=== PATIENT | male | born 1980 | race Caucasian/White ===

== ENCOUNTER 2017-01-27 16:41 | Inpatient (IN) | payer MEDICAID, OTHER ==
[2017-01-27] MEDS ORDERED: Alum Hydrox/Mag Hydrox/Simeth 30 ML, Lidocaine 2% 15 ML PO ONE ×2 (17:16)
[2017-01-27] MEDS ORDERED: Ondansetron 4 MG/2 ML SDV IVPUSH ONE (17:16)
[2017-01-27] MEDS ORDERED: HYDROmorphone 1 MG/ML Syringe IVPUSH ONE ×3 (17:16→19:45)
[2017-01-27] MEDS ORDERED: Sodium Chloride 0.9% 10 ML Syringe FLUSH PRN (17:16)
--- NOTE | 2017-01-27 17:23 | EDM.PDOC ---
ED HPI GENERAL MEDICAL PROBLEM - General Chief Complaint: Gastrointestinal Problem Stated Complaint: VOMITING Time Seen by Provider: 01/27/17 17:05 Source of Information: Reports: Patient History Limitations: Reports: No Limitations - History of Present Illness INITIAL COMMENTS - FREE TEXT/NARRATIVE: patient is a 36-year-old male presents to ED complaining of right upper quadrant abdominal pain and nausea with vomiting. States this started last night after eating questionable bad coleslaw. Started proximal and 2 hours after eating pulled pork sandwich and coleslaw. States after eating coleslaw he became bloated and distended some discomfort and gave himself to vomit x2. He was able to sleep throughout the night without issues. Upon waking this morning a couple further and again experienced similar episode. This again happened at lunchtime. States he had peanut butter and jelly sandwich at lunch. states the pain is isolated to the right upper quadrant described as a crampy sharp sensation. Pain is constant and waxes and wanes in intensity. Pain is rated as 7 /10 currently. he has not taken anything for the pain. Denies any fever/chills, shortness of breath, chest pain, acid reflux, diarrhea, dysuria. Patient has a history of left inguinal hernia repair and back fusion. He has no additional past medical history and is currently taking no prescription medications. Patient does smoke one pack per day. Alcohol social. No recreational drug use. PCP is Reema and cold. Onset: Sudden Duration: Constant, Getting Worse, Waxing/Waning Location: Reports: Abdomen Quality: Reports: Ache, Sharp, Stabbing Severity: Severe Improves with: Reports: None Worsens with: Reports: Eating Context: Reports: Other Associated Symptoms: Reports: Loss of Appetite, Nausea/Vomiting. 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 [No Known Home Meds] 01/27/17 [History] Past Medical History Musculoskeletal History: Reports: Back Pain, Chronic - Past Surgical History GI Surgical History: Reports: Hernia Repair/Other Neurological Surgical History: Reports: Spinal Fusion Musculoskeletal Surgical History: Reports: Other (See Below) Other Musculoskeletal Surgeries/Procedures:: back surgery Social & Family History - Family History Family Medical History: Noncontributory - Tobacco Use Smoking Status *Q: Current Every Day Smoker Years of Tobacco use: 10 Packs/Tins Daily: 1 - Caffeine Use Caffeine Use: Reports: Coffee - Alcohol Use Days Per Week of Alcohol Use: 2 Number of Drinks Per Day: 4 Total Drinks Per Week: 8 - Recreational Drug Use Recreational Drug Use: Yes Drug Use in Last 12 Months: Yes Recreational Drug Type: Reports: Marijuana/Hashish Recreational Drug Use Frequency: Monthly ED ROS GENERAL - Review of Systems Review Of Systems: See Below Constitutional: Reports: Decreased Appetite. Denies: Fever, Chills, Malaise, Weakness Respiratory: Denies: Shortness of Breath, Cough, Sputum Cardiovascular: Denies: Chest Pain, Dyspnea on Exertion, Palpitations, Syncope GI/Abdominal: Reports: Abdominal Pain, Nausea, Vomiting. Denies: Constipation, Diarrhea, Hematemesis : Denies: Dysuria Musculoskeletal: Denies: Back Pain Neurological: Denies: Dizziness ED EXAM, GI/ABD - Physical Exam Exam: See Below Exam Limited By: No Limitations General Appearance: Alert, WD/WN, Moderate Distress Ears: Hearing Grossly Normal Nose: Normal Inspection Throat/Mouth: Normal Voice, No Airway Compromise Neck: Normal Inspection, Supple Respiratory/Chest: No Respiratory Distress, Lungs Clear, No Accessory Muscle Use Cardiovascular: Normal Peripheral Pulses, Regular Rate, Rhythm, No Murmur GI/Abdominal: Normal Bowel Sounds, Soft, No Organomegaly, No Distention, Guarding, Patricia's Sign. No: McBurney's Sign (Male) Exam: Deferred Rectal (Males) Exam: Deferred Back Exam: Normal Inspection Neurological: Alert, Oriented, CN II-XII Intact, Normal Cognition Psychiatric: Normal Affect, Normal Mood Skin Exam: Warm, Dry, Intact, Normal Color Course - Vital Signs Last Recorded V/S: Last Vital Signs Temp 98.8 F 01/27/17 16:49 Pulse 77 01/27/17 16:49 Resp BP 143/88 H 01/27/17 16:49 Pulse Ox 100 01/27/17 16:49 - Orders/Labs/Meds Orders: Active Orders 24 hr Category Date Time Status Ambulate [RC] ASDIRECTED Care 01/27/17 20:34 Active Height and Weight [RC] DAILY Care 01/27/17 20:34 Active Intake and Output [RC] QSHIFT Care 01/27/17 20:34 Active Notify Provider Consults [RC] ASDIRECTED Care 01/27/17 20:38 Active Oxygen Therapy [RC] PRN Care 01/27/17 20:34 Active Peripheral IV Care [RC] . DIRECTED Care 01/27/17 17:16 Active RT Aerosol Therapy [RC] ASDIRECTED Care 01/27/17 20:36 Active Up With Assistance [RC] ASDIRECTED Care 01/27/17 20:34 Active Up ad Funmi [RC] ASDIRECTED Care 01/27/17 20:34 Active VTE/DVT Education [RC] PER UNIT ROUTINE Care 01/27/17 20:34 Active Vital Signs [RC] Q4H Care 01/27/17 20:34 Active Consult to Case Management [CONS] Routine Cons 01/27/17 20:37 Active Consult to Physician [CONS] Routine Cons 01/27/17 20:37 Active Consult to Product Demonstrator [CONS] Routine Cons 01/27/17 20:37 Active NPO [Nothing Per Oral Diet] [DIET] Diet 01/27/17 Breakfast Active Nothing per Oral Now Diet [DIET] Diet 01/27/17 Dinner Active BASIC METABOLIC PANEL,BMP [CHEM] AM Lab 01/28/17 05:11 Ordered BASIC METABOLIC PANEL,BMP [CHEM] AM Lab 01/29/17 05:11 Ordered BASIC METABOLIC PANEL,BMP [CHEM] AM Lab 01/30/17 05:11 Ordered BASIC METABOLIC PANEL,BMP [CHEM] AM Lab 01/31/17 05:11 Ordered BASIC METABOLIC PANEL,BMP [CHEM] AM Lab 02/01/17 05:11 Ordered C-REACTIVE PROTEIN [CHEM] AM Lab 01/28/17 05:11 Ordered C-REACTIVE PROTEIN [CHEM] AM Lab 01/29/17 05:11 Ordered C-REACTIVE PROTEIN [CHEM] AM Lab 01/30/17 05:11 Ordered C-REACTIVE PROTEIN [CHEM] AM Lab 01/31/17 05:11 Ordered C-REACTIVE PROTEIN [CHEM] AM Lab 02/01/17 05:11 Ordered CBC WITH AUTO DIFF [HEME] AM Lab 01/28/17 05:11 Ordered CBC WITH AUTO DIFF [HEME] AM Lab 01/29/17 05:11 Ordered CBC WITH AUTO DIFF [HEME] AM Lab 01/30/17 05:11 Ordered CBC WITH AUTO DIFF [HEME] AM Lab 01/31/17 05:11 Ordered CBC WITH AUTO DIFF [HEME] AM Lab 02/01/17 05:11 Ordered MAGNESIUM [CHEM] AM Lab 01/28/17 05:11 Ordered MAGNESIUM [CHEM] AM Lab 01/29/17 05:11 Ordered MAGNESIUM [CHEM] AM Lab 01/30/17 05:11 Ordered MAGNESIUM [CHEM] AM Lab 01/31/17 05:11 Ordered MAGNESIUM [CHEM] AM Lab 02/01/17 05:11 Ordered Albuterol/Ipratropium [DuoNeb 3.0-0.5 MG/3 ML] Med 01/27/17 20:36 Active 3 ml NEB Q4H PRN Bisacodyl [Dulcolax] Med 01/27/17 20:36 Active 5 mg PO DAILY PRN Dextrose 5%-0.45% NaCl [Dextrose 5%-1/2 NS] 1,000 ml Med 01/27/17 21:30 Active IV ASDIRECTED Docusate Sodium/Sennosides [Senna Plus] Med 01/27/17 20:36 Active 1 tab PO BID PRN Enoxaparin [Lovenox] Med 01/28/17 09:00 Active 40 mg SUBCUT DAILY HYDROmorphone [Dilaudid] Med 01/27/17 20:34 Active 1 mg IVPUSH Q4H PRN LORazepam [Ativan] Med 01/27/17 20:36 Active 1 mg IV Q6H PRN Magnesium Rep Pharmacy to Dose [Pharmacy to Dose - Med 01/27/17 20:45 Pending Magnesium Replacement] 1 dose .XX ASDIRECTED Metoprolol Tartrate [Lopressor] Med 01/27/17 20:39 Active 5 mg IVPUSH Q4H PRN Nicotine [Habitrol] Med 01/27/17 21:00 Active 21 mg TRDERM DAILY Ondansetron [Zofran] Med 01/27/17 20:34 Active 4 mg IV Q6H PRN Piperacillin/Tazobactam [Zosyn] 4.5 gm Med 01/28/17 04:00 Active Sodium Chloride 0.9% [Normal Saline] 100 ml IV Q8H Polyethylene Glycol 3350 [MiraLAX] Med 01/27/17 20:36 Active 17 gm PO DAILY PRN Potassium Rep Pharmacy to Dose [Pharmacy to Dose - Med 01/27/17 20:45 Pending Potassium Replacement] 1 dose .XX ASDIRECTED Promethazine [Phenergan] 12.5 mg Med 01/27/17 20:34 Active Sodium Chloride 0.9% [Normal Saline] 50 ml IV Q6H Saccharomyces Boulardii [Florastor] Med 01/27/17 21:00 Active 500 mg PO BID Sodium Chloride 0.9% [Saline Flush] Med 01/27/17 17:16 Active 10 ml FLUSH ASDIRECTED PRN Temazepam [Restoril] Med 01/27/17 20:36 Active 30 mg PO BEDTIME PRN hydrALAZINE [Apresoline] Med 01/27/17 20:39 Active 20 mg IVPUSH Q4H PRN Peripheral IV Insertion Adult [OM.PC] Stat Oth 01/27/17 17:15 Ordered Resuscitation Status Routine Resus Stat 01/27/17 20:34 Ordered Medication Orders Albuterol/Ipratropium (Duoneb 3.0-0.5 Mg/3 Ml) 3 ml NEB Q4H PRN PRN Reason: Shortness Of Breath/wheezing Bisacodyl (Dulcolax) 5 mg PO DAILY PRN PRN Reason: Constipation Enoxaparin Sodium (Lovenox) 40 mg SUBCUT DAILY [facility] Hydralazine HCl (Apresoline) 20 mg IVPUSH Q4H PRN PRN Reason: Hypertension Hydromorphone HCl (Dilaudid) 1 mg IVPUSH Q4H PRN PRN Reason: Pain (severe 7-10) Promethazine HCl 12.5 mg/ (Sodium Chloride) 50.5 mls @ 100 mls/hr IV Q6H PRN PRN Reason: Nausea/Vomiting Dextrose/Sodium Chloride (Dextrose 5%-1/2 Ns) 1,000 mls @ 125 mls/hr IV ASDIRECTED [facility] Piperacillin Sod/Tazobactam (Sod 4.5 gm/ Sodium Chloride) 100 mls @ 25 mls/hr IV Q8H [facility] Lorazepam (Ativan) 1 mg IV Q6H PRN PRN Reason: Anxiety Magnesium Sulfate (Pharmacy To Dose - Magnesium Replacement) 1 dose .XX ASDIRECTED [facility] Metoprolol Tartrate (Lopressor) 5 mg IVPUSH Q4H PRN PRN Reason: Tachycardia Nicotine (Habitrol) 21 mg TRDERM DAILY [facility] Ondansetron HCl (Zofran) 4 mg IV Q6H PRN PRN Reason: Nausea/Vomiting Polyethylene Glycol (Miralax) 17 gm PO DAILY PRN PRN Reason: Constipation Potassium Chloride (Pharmacy To Dose - Potassium Replacement) 1 dose .XX ASDIRECTED [facility] Saccharomyces Boulardii (Florastor) 500 mg PO BID [facility] Senna/Docusate Sodium (Senna Plus) 1 tab PO BID PRN PRN Reason: Constipation Sodium Chloride (Saline Flush) 10 ml FLUSH ASDIRECTED PRN PRN Reason: Keep Vein Open Last Admin: 01/27/17 17:50 Dose: 10 ml Temazepam (Restoril) 30 mg PO BEDTIME PRN PRN Reason: Sleep Labs: Laboratory Tests 01/27/17 01/27/17 01/27/17 Range/Units 17:00 17:00 17:00 WBC 12.86 H (4.23-9.07) K/mm3 RBC 4.96 (4.63-6.08) M/mm3 Hgb 15.3 (13.7-17.5) gm/L Hct 44.7 (40.1-51.0) % MCV 90.1 (79.0-92.2) fl MCH 30.8 (25.7-32.2) pg MCHC 34.2 (32.2-35.5) g/dl RDW Std Deviation 44.7 H (35.1-43.9) fL Plt Count 205 (163-337) K/mm3 MPV 9.7 (9.4-12.3) fl Neut % (Auto) 80.7 H (34.0-67.9) % Lymph % (Auto) 10.7 L (21.8-53.1) % Burnet % (Auto) 7.5 (5.3-12.2) % Eos % (Auto) 0.7 L (0.8-7.0) Baso % (Auto) 0.2 (0.1-1.2) % Neut # (Auto) 10.39 H (1.78-5.38) K/mm3 Lymph # (Auto) 1.37 (1.32-3.57) K/mm3 Burnet # (Auto) 0.97 H (0.30-0.82) K/mm3 Eos # (Auto) 0.09 (0.04-0.54) K/mm3 Baso # (Auto) 0.02 (0.01-0.08) K/mm3 Sodium 143 (136-145) mEq/L Potassium 3.9 (3.5-5.1) mEq/L Chloride 105 (98-107) mEq/L Carbon Dioxide 28 (21-32) mEq/L Anion Gap 13.9 (5-15) BUN 16 (7-18) mg/dL Creatinine 1.1 (0.7-1.3) mg/dL Est Cr Clr Drug Dosing 105.86 mL/min Estimated GFR (MDRD) > 60 (>60) mL/min BUN/Creatinine Ratio 14.5 (14-18) Glucose 125 H (74-106) mg/dL Lactic Acid (0.4-2.0) mmol/L Calcium 9.2 (8.5-10.1) mg/dL Total Bilirubin 0.7 (0.2-1.0) mg/dL GGT 271 H (15-85) U/L AST 268 H (15-37) U/L ALT 225 H (16-63) U/L Alkaline Phosphatase 119 H (46-116) U/L Lactate Dehydrogenase (85-227) U/L C-Reactive Protein < 0.2 (<1.0) mg/dL Total Protein 7.5 (6.4-8.2) g/dl Albumin 4.2 (3.4-5.0) g/dl Globulin 3.3 gm/dL Albumin/Globulin Ratio 1.3 (1-2) Triglycerides (<150) mg/dL Cholesterol (<200) mg/dL LDL Cholesterol Direct (<100) mg/dL HDL Cholesterol (40-59) mg/dL Lipase 82519 H (73-393) U/L Urine Color (Yellow) Urine Appearance (Clear) Urine pH (5.0-8.0) Ur Specific [place] (1.005-1.030) Urine Protein (Negative) Urine Glucose (UA) (Negative) Urine Ketones (Negative) Urine Occult Blood (Negative) Urine Nitrite (Negative) Urine Bilirubin (Negative) Urine Urobilinogen (0.2-1.0) Ur Leukocyte Esterase (Negative) Urine RBC (0-5) /hpf Urine WBC (0-5) /hpf Ur Epithelial Cells Ur Squamous Epith Cells (0-5) /hpf Amorphous Sediment (NOT SEEN) /hpf Urine Bacteria (FEW) /hpf Urine Mucus (FEW) /hpf 01/27/17 01/27/17 01/27/17 Range/Units 17:00 17:56 21:05 WBC (4.23-9.07) K/mm3 RBC (4.63-6.08) M/mm3 Hgb (13.7-17.5) gm/L Hct (40.1-51.0) % MCV (79.0-92.2) fl MCH (25.7-32.2) pg MCHC (32.2-35.5) g/dl RDW Std Deviation (35.1-43.9) fL Plt Count (163-337) K/mm3 MPV (9.4-12.3) fl Neut % (Auto) (34.0-67.9) % Lymph % (Auto) (21.8-53.1) % Burnet % (Auto) (5.3-12.2) % Eos % (Auto) (0.8-7.0) Baso % (Auto) (0.1-1.2) % Neut # (Auto) (1.78-5.38) K/mm3 Lymph # (Auto) (1.32-3.57) K/mm3 Burnet # (Auto) (0.30-0.82) K/mm3 Eos # (Auto) (0.04-0.54) K/mm3 Baso # (Auto) (0.01-0.08) K/mm3 Sodium (136-145) mEq/L Potassium (3.5-5.1) mEq/L Chloride (98-107) mEq/L Carbon Dioxide (21-32) mEq/L Anion Gap (5-15) BUN (7-18) mg/dL Creatinine (0.7-1.3) mg/dL Est Cr Clr Drug Dosing mL/min Estimated GFR (MDRD) (>60) mL/min BUN/Creatinine Ratio (14-18) Glucose (74-106) mg/dL Lactic Acid 0.9 (0.4-2.0) mmol/L Calcium (8.5-10.1) mg/dL Total Bilirubin (0.2-1.0) mg/dL GGT (15-85) U/L AST (15-37) U/L ALT (16-63) U/L Alkaline Phosphatase (46-116) U/L Lactate Dehydrogenase 366 H (85-227) U/L C-Reactive Protein < 0.2 (<1.0) mg/dL Total Protein (6.4-8.2) g/dl Albumin (3.4-5.0) g/dl Globulin gm/dL Albumin/Globulin Ratio (1-2) Triglycerides 209 H (<150) mg/dL Cholesterol 200 (<200) mg/dL LDL Cholesterol Direct 109 H* (<100) mg/dL HDL Cholesterol 49.0 (40-59) mg/dL Lipase (73-393) U/L Urine Color Yellow (Yellow) Urine Appearance Cloudy H (Clear) Urine pH 8.5 H (5.0-8.0) Ur Specific [place] 1.020 (1.005-1.030) Urine Protein 1+ H (Negative) Urine Glucose (UA) Negative (Negative) Urine Ketones Negative (Negative) Urine Occult Blood Negative (Negative) Urine Nitrite Negative (Negative) Urine Bilirubin Negative (Negative) Urine Urobilinogen 1.0 (0.2-1.0) Ur Leukocyte Esterase Negative (Negative) Urine RBC Not seen (0-5) /hpf Urine WBC 0-5 (0-5) /hpf Ur Epithelial Cells Not Reportable Ur Squamous Epith Cells 0-5 (0-5) /hpf Amorphous Sediment Many H (NOT SEEN) /hpf Urine Bacteria Moderate H (FEW) /hpf Urine Mucus Not seen (FEW) /hpf Meds: Medications Generic Name Dose Route Start Last Admin Trade Name Freq PRN Reason Stop Dose Admin Albuterol/Ipratropium 3 ml 01/27/17 20:36 Duoneb 3.0-0.5 Mg/3 Ml NEB Q4H PRN Shortness Of Breath/wheezing Bisacodyl 5 mg 01/27/17 20:36 Dulcolax PO DAILY PRN Constipation Enoxaparin Sodium 40 mg 01/28/17 09:00 Lovenox SUBCUT DAILY [facility] Hydralazine HCl 20 mg 01/27/17 20:39 Apresoline IVPUSH Q4H PRN Hypertension Hydromorphone HCl 1 mg 01/27/17 20:34 Dilaudid IVPUSH Q4H PRN Pain (severe 7-10) Promethazine HCl 12.5 mg/ 50.5 mls @ 100 mls/hr 01/27/17 20:34 Sodium Chloride IV Q6H PRN Nausea/Vomiting Dextrose/Sodium Chloride 1,000 mls @ 125 mls/hr 01/27/17 21:30 Dextrose 5%-1/2 Ns IV ASDIRECTED [facility] Piperacillin Sod/Tazobactam 100 mls @ 25 mls/hr 01/28/17 04:00 Sod 4.5 gm/ Sodium Chloride IV Q8H [facility] Lorazepam 1 mg 01/27/17 20:36 Ativan IV Q6H PRN Anxiety Magnesium Sulfate 1 dose 01/27/17 20:45 Pharmacy To Dose - Magnesium Replacement .XX ASDIRECTED [facility] Metoprolol Tartrate 5 mg 01/27/17 20:39 Lopressor IVPUSH Q4H PRN Tachycardia Nicotine 21 mg 01/27/17 21:00 Habitrol TRDERM DAILY [facility] Ondansetron HCl 4 mg 01/27/17 20:34 Zofran IV Q6H PRN Nausea/Vomiting Polyethylene Glycol 17 gm 01/27/17 20:36 Miralax PO DAILY PRN Constipation Potassium Chloride 1 dose 01/27/17 20:45 Pharmacy To Dose - Potassium Replacement .XX ASDIRECTED [facility] Saccharomyces Boulardii 500 mg 01/27/17 21:00 Florastor PO BID [facility] Senna/Docusate Sodium 1 tab 01/27/17 20:36 Senna Plus PO BID PRN Constipation Sodium Chloride 10 ml 01/27/17 17:16 01/27/17 17:50 Saline Flush FLUSH 10 ml ASDIRECTED PRN Administration Keep Vein Open Temazepam 30 mg 01/27/17 20:36 Restoril PO BEDTIME PRN Sleep Discontinued Medications Generic Name Dose Route Start Last Admin Trade Name Freq PRN Reason Stop Dose Admin Al Hydroxide/Mg Hydroxide 30 0 ml 01/27/17 17:16 01/27/17 17:47 ml/ Lidocaine HCl 15 ml PO 01/27/17 17:17 45 ml ONETIME ONE Administration Hydromorphone HCl 1 mg 01/27/17 17:16 01/27/17 17:42 Dilaudid IVPUSH 01/27/17 17:17 1 mg ONETIME ONE Administration Hydromorphone HCl 1 mg 01/27/17 18:43 01/27/17 18:48 Dilaudid IVPUSH 01/27/17 18:44 1 mg ONETIME ONE Administration Hydromorphone HCl 1 mg 01/27/17 19:45 01/27/17 20:23 Dilaudid IVPUSH 01/27/17 19:46 1 mg ONETIME ONE Administration Hyoscyamine 0.125 mg 01/27/17 18:44 01/27/17 18:49 Hyomax-Sl SL 01/27/17 18:45 0.125 mg ONETIME ONE Administration Sodium Chloride 1,000 mls @ 250 mls/hr 01/27/17 17:30 01/27/17 20:15 Normal Saline IV 01/27/17 21:29 999 mls/hr ASDIRECTED [facility] Infusion Sodium Chloride 1,000 mls @ 999 mls/hr 01/27/17 19:55 01/27/17 21:11 Normal Saline IV 01/27/17 20:55 999 mls/hr ONETIME ONE Administration Piperacillin Sod/Tazobactam 100 mls @ 200 mls/hr 01/27/17 20:00 01/27/17 21: 42 Sod 3.375 gm/ Sodium Chloride IV 01/27/17 20:29 Not Given ONETIME ONE Sodium Chloride 1,000 mls @ 999 mls/hr 01/27/17 20:04 Normal Saline IV 01/27/17 21:04 ONETIME ONE Piperacillin Sod/Tazobactam 100 mls @ 200 mls/hr 01/27/17 20:18 Sod 4.5 gm/ Sodium Chloride IV 01/27/17 20:47 ONETIME ONE Iopamidol 125 ml 01/27/17 20:13 01/27/17 20:43 Isovue-300 (61%) IVPUSH 01/27/17 20:14 125 ml ONETIME ONE Administration Ondansetron HCl 4 mg 01/27/17 17:16 01/27/17 17:45 Zofran IVPUSH 01/27/17 17:17 4 mg ONETIME ONE Administration Scopolamine 1.5 mg 01/27/17 20:40 Transderm-Scop TOP 01/27/17 20:41 ONETIME ONE Sodium Chloride 10 ml 01/27/17 20:13 01/27/17 20:43 Saline Flush FLUSH 01/27/17 20:14 10 ml ONETIME ONE Administration - Re-Assessments/Exams Free Text/Narrative Re-Assessment/Exam: Ordered a peripheral IV with normal saline 250 mL per hour, Zofran 4 mg IVP, Dilaudid 1 mg IVP, GI cocktail, CBC, chem 14, CRP, lipase, and UA. 01/27/17 18:06 White blood cell count 12.86, neutrophil percentage 80.7, neutrophil #10.39, sodium 143 potassium 3.9, creatinine 1.1, glucose 125, total bilirubin 0.7, AST 268, ALT 225, phosphatase 119, CRP less than 0.2, lipase pending. Ordered a limited abdominal ultrasound to rule out cholecystitis. 01/27/17 18:44 Per nursing staff patient still complaining of pain RUQ. Ordered levsin o.125 mg SL and dilaudid 1 mgIVP. 01/27/17 18:47Lipase 20,778. UA negative for hematuria. Ordered GGT. 01/27/17 19:41 GGT 271 01/27/17 19:42 limited abdominal ultrasound impression: Multiple gallstones. No gallbladder wall thickening or biliary duct rotation seen. Scattered pancreas from bowel gas. No additional abnormality is identified on the right upper quadrant abdominal ultrasound exam. Ordered CT of the abdomen and p 01/27/17 19:[address] Palomares, patient does not require ERCP since no ductal dilitation noted. Patient most likely passed a stone. Suggest admitting to the hospital for gallstone pancreatitis. Repeat LFTs a.m. and obtain MRICP tomorrow morning. If ductal stone present call Dr. Palomares to transfer and have ERCP performed. 01/27/17 20:03 Orderd MS 2000 mL 999 mL per hour, Zosyn 3.375 g IV x1.Discussed patient with Dr. David he has agreed to admit the patient to [facility] telemetry. Admission orders placed by Dr. Spence. CT abdomen pelvis with IV contrast impression: Slightly prominent fluid-filled small bowel loops of the left abdomen raising the possibility of gastroenteritis. Gallstones. Other incidental findings as described above. Departure - Departure Time of Disposition: 20:06 Disposition: Admitted As Inpatient 64 Clinical Impression: Pancreatitis, gallstone - Discharge Information Referrals: Corine Olvera PHOTOGRAPHIC PROCESS WORKER [Primary Care Provider] - Forms: ED Department Discharge - My Orders Last 24 Hours: My Active Orders 01/27/17 17:15 Peripheral IV Insertion Adult [OM.PC] Stat 01/27/17 17:16 Peripheral IV Care [RC] . DIRECTED Sodium Chloride 0.9% [Saline Flush] 10 ml FLUSH ASDIRECTED PRN 01/27/17 Breakfast NPO [Nothing Per Oral Diet] [DIET] - Assessment/Plan Last 24 Hours: My Active Orders 01/27/17 17:15 Peripheral IV Insertion Adult [OM.PC] Stat 01/27/17 17:16 Peripheral IV Care [RC] . DIRECTED Sodium Chloride 0.9% [Saline Flush] 10 ml FLUSH ASDIRECTED PRN 01/27/17 Breakfast NPO [Nothing Per Oral Diet] [DIET]
[2017-01-27] MEDS: Sodium Chloride 0.9% 1,000 ML IV SCH ×2 (17:41→23:20)
[2017-01-27] MEDS ORDERED: Acetaminophen/oxyCODONE 325-5 MG Tab PO ONE (17:59)
[2017-01-27] MEDS ORDERED: Hyoscyamine 0.125 MG Tab.SL SL ONE (18:44)
--- NOTE | 2017-01-27 19:40 | US ---
Addendum: Impression #2 states "scattered pancreas from bowel gas". This is a voice recognition error and should read as follows: 2. Obscured pancreas from bowel gas --- Addendum1 above dictated on [02/04/2017 09:04] by [Fidelina Powell, Ralph Chawla] --- --- Addendum1 above signed on [02/04/2017 09:05] by [Fidelina Powell Hilton J.] --- --- Original report below dictated on [01/27/2017 19:37] by [Fidelina Powell, Ralph Chawla] --- --- Original report below signed on [01/27/2017 19:37] by [Fidelina Powell Hilton J.] --- Limited abdominal ultrasound: Multiple real-time images of the upper right abdomen were obtained. Comparison: Previous renal stone protocol CT exam of 05/03/16 is available. Liver shows no focal abnormality. Gallstones are seen within the gallbladder. No gallbladder wall thickening or biliary duct dilatation is seen. Right kidney shows no hydronephrosis or mass. Right kidney measures 14.2 cm in length. Pancreas is obscured from bowel gas. Inferior vena cava is patent. Impression: 1. Multiple gallstones. No gallbladder wall thickening or biliary duct dilatation is seen. 2. Scattered pancreas from bowel gas. 3. No additional abnormality is identified on right upper quadrant abdominal ultrasound exam. Diagnostic code #3 --- Addendum1 signed ---
[2017-01-27] MEDS ORDERED: Sodium Chloride 0.9% 1,000 ML IV ONE ×2 (19:55→20:04)
[2017-01-27] MEDS ORDERED: Sodium Chloride 0.9% 10 ML Syringe FLUSH ONE (20:13)
[2017-01-27] MEDS ORDERED: Iopamidol 612 MG/ML 150 ML Bottle IVPUSH ONE (20:13)
[2017-01-27] MEDS: Piperacillin/Tazobactam 3.375 GM in Sodium Chloride 0.9% 100 ML IV ONE ×2 (20:18→21:42)
[2017-01-27] MEDS ORDERED: Piperacillin/Tazobactam 4.5 GM in Sodium Chloride 0.9% 100 ML IV ONE (20:18)
--- NOTE | 2017-01-27 20:22 | PCM.HP ---
H&P History of Present Illness - General Date of Service: 01/27/17 Admit Problem/Dx: Pancreatitis Source of Information: Patient, Old Records, Provider, RN Notes Reviewed History Limitations: Reports: No Limitations - History of Present Illness Initial Comments - Free Text/Narative: This is a 36 yo white male with past medical hx/o Gallstone, Renal stones, Chronic Back Pain w/ Spinal Fusion, Inguinal Hernia Repair, Nicotine dependence and Chronic Mild Alcohol Use who comes in with complaints of right upper quadrant abdominal pain associated with nausea and vomiting and was found to have gallstone pancreatitis. He denies previous hx in the past. His initial work up in ED shows a CBC remarkable for WBC 12.86 and Neutrophils 80.7%. His chemistry is remarkable for BS 125, GGT 271, AST 268, ALT 225 and [place]k [place] 119[place] [address]. UA is negative for UTI. His Abdominal U/S shows multiple gallstones. No GBW thickening or biliary ductal dilatation. Patient is being admitted for Gallstone Pancreatitis. Abdominal Pain Score (Numeric/FACES): 8 - Related Data Allergies/Adverse Reactions: Allergies Allergy/AdvReac Type Severity Reaction Status Date / Time No Known Allergies Allergy Verified 01/27/17 16:49 Home Medications: Home Meds . [No Known Home Meds] 01/27/17 [History] Past Medical History Musculoskeletal History: Reports: Back Pain, Chronic - Past Surgical History GI Surgical History: Reports: Hernia Repair/Other Neurological Surgical History: Reports: Spinal Fusion Musculoskeletal Surgical History: Reports: Other (See Below) Other Musculoskeletal Surgeries/Procedures:: back surgery Social & Family History - Family History Family Medical History: Noncontributory - Tobacco Use Smoking Status *Q: Current Every Day Smoker Years of Tobacco use: 10 Packs/Tins Daily: 1 - Caffeine Use Caffeine Use: Reports: Coffee - Alcohol Use Days Per Week of Alcohol Use: 2 Number of Drinks Per Day: 4 Total Drinks Per Week: 8 - Recreational Drug Use Recreational Drug Use: Yes Drug Use in Last 12 Months: Yes Recreational Drug Type: Reports: Marijuana/Hashish Recreational Drug Use Frequency: Monthly H&P Review of Systems - Review of Systems: Review Of Systems: See Below General: Reports: Decreased Appetite. Denies: Fever, Chills, Malaise, Weakness , Fatigue HEENT: Reports: No Symptoms Cardiovascular: Denies: Palpitations, Dyspnea on Exertion Gastrointestinal: Reports: Abdominal Pain, Decreased Appetite, Nausea, Vomiting Genitourinary: Reports: No Symptoms Musculoskeletal: Reports: No Symptoms Skin: Denies: Cyanosis, Jaundice, Pruritis, Rash, Erythema Psychiatric: Denies: Confusion, Depression, Anxiety, Agitation, Hallucinations, Suicidal Ideation Neurological: Denies: Confusion, Seizure, Syncope, Difficulty Walking, Weakness , Gait Disturbance Hematologic/Lymphatic: Reports: No Symptoms Immunologic: Reports: No Symptoms Exam - Exam Exam: See Below - Vital Signs Vital Signs: Last Vital Signs Temp 37.1 C 01/27/17 16:49 Pulse 77 01/27/17 16:49 Resp BP 143/88 H 01/27/17 16:49 Pulse Ox 100 01/27/17 16:49 Weight: 90.718 kg - Exam General: Alert, Oriented, Cooperative. No: Mild Distress HEENT: Conjunctiva Clear, EACs Clear, EOMI, Hearing Intact, Mucosa Moist & Moran , Nares Patent, Normal Nasal Septum, Posterior Pharynx Clear, Pupils Equal, Pupils Reactive, TMs Clear Neck: Supple, Trachea Midline, +2 Carotid Pulse wo Bruit, Full Range of Motion Lungs: Clear to Auscultation, Normal Respiratory Effort Cardiovascular: Regular Rate, Regular Rhythm Abdomen: Normal Bowel Sounds, Soft, Tenderness. No: Organomegaly, Peritoneal Signs, Distention, Guarding, Rigidity (Male) Exam: Deferred Rectal (Males) Exam: Deferred Back Exam: Normal Inspection, Decreased Range of Motion Extremities: Normal Inspection, Normal Pulses. No: Clubbing, Cyanosis, Edema Peripheral Pulses: 3+: Posterior Tibial (L), Posterior Tibial (R), Dorsalis Pedis (L), Dorsalis Pedis (R) Skin: Warm, Dry, Intact Neuro Extensive - Mental Status: Oriented x3, Normal Cognition, Memory Intact Neuro Extensive - Motor, Sensory, Reflexes: CN II-XII Intact, Normal Gait Psychiatric: Alert, Normal Affect, Normal Mood - Patient Data Lab Results last 24 hrs: Laboratory Results - last 24 hr 01/27/17 01/27/17 01/27/17 Range/Units 17:00 17:00 17:00 WBC 12.86 H (4.23-9.07) K/mm3 RBC 4.96 (4.63-6.08) M/mm3 Hgb 15.3 (13.7-17.5) gm/L Hct 44.7 (40.1-51.0) % MCV 90.1 (79.0-92.2) fl MCH 30.8 (25.7-32.2) pg MCHC 34.2 (32.2-35.5) g/dl RDW Std Deviation 44.7 H (35.1-43.9) fL Plt Count 205 (163-337) K/mm3 MPV 9.7 (9.4-12.3) fl Neut % (Auto) 80.7 H (34.0-67.9) % Lymph % (Auto) 10.7 L (21.8-53.1) % [place] % (Auto) 7.5 (5.3-12.2) % Eos % (Auto) 0.7 L (0.8-7.0) Baso % (Auto) 0.2 (0.1-1.2) % Neut # (Auto) 10.39 H (1.78-5.38) K/mm3 Lymph # (Auto) 1.37 (1.32-3.57) K/mm3 [place] # (Auto) 0.97 H (0.30-0.82) K/mm3 Eos # (Auto) 0.09 (0.04-0.54) K/mm3 Baso # (Auto) 0.02 (0.01-0.08) K/mm3 Sodium 143 (136-145) mEq/L Potassium 3.9 (3.5-5.1) mEq/L Chloride 105 (98-107) mEq/L Carbon Dioxide 28 (21-32) mEq/L Anion Gap 13.9 (5-15) BUN 16 (7-18) mg/dL Creatinine 1.1 (0.7-1.3) mg/dL Est Cr Clr Drug Dosing 105.86 mL/min Estimated GFR (MDRD) > 60 (>60) mL/min BUN/Creatinine Ratio 14.5 (14-18) Glucose 125 H (74-106) mg/dL Calcium 9.2 (8.5-10.1) mg/dL Total Bilirubin 0.7 (0.2-1.0) mg/dL GGT 271 H (15-85) U/L AST 268 H (15-37) U/L ALT 225 H (16-63) U/L Alkaline Phosphatase 119 H (46-116) U/L C-Reactive Protein < 0.2 (<1.0) mg/dL Total Protein 7.5 (6.4-8.2) g/dl Albumin 4.2 (3.4-5.0) g/dl Globulin 3.3 gm/dL Albumin/Globulin Ratio 1.3 (1-2) Lipase 01147 H (73-393) U/L Urine Color (Yellow) Urine Appearance (Clear) Urine pH (5.0-8.0) Ur Specific [place] (1.005-1.030) Urine Protein (Negative) Urine Glucose (UA) (Negative) Urine Ketones (Negative) Urine Occult Blood (Negative) Urine Nitrite (Negative) Urine Bilirubin (Negative) Urine Urobilinogen (0.2-1.0) Ur Leukocyte Esterase (Negative) Urine RBC (0-5) /hpf Urine WBC (0-5) /hpf Ur Epithelial Cells Ur Squamous Epith Cells (0-5) /hpf Amorphous Sediment (NOT SEEN) /hpf Urine Bacteria (FEW) /hpf Urine Mucus (FEW) /hpf 01/27/17 Range/Units 17:56 WBC (4.23-9.07) K/mm3 RBC (4.63-6.08) M/mm3 Hgb (13.7-17.5) gm/L Hct (40.1-51.0) % MCV (79.0-92.2) fl MCH (25.7-32.2) pg MCHC (32.2-35.5) g/dl RDW Std Deviation (35.1-43.9) fL Plt Count (163-337) K/mm3 MPV (9.4-12.3) fl Neut % (Auto) (34.0-67.9) % Lymph % (Auto) (21.8-53.1) % [place] % (Auto) (5.3-12.2) % Eos % (Auto) (0.8-7.0) Baso % (Auto) (0.1-1.2) % Neut # (Auto) (1.78-5.38) K/mm3 Lymph # (Auto) (1.32-3.57) K/mm3 [place] # (Auto) (0.30-0.82) K/mm3 Eos # (Auto) (0.04-0.54) K/mm3 Baso # (Auto) (0.01-0.08) K/mm3 Sodium (136-145) mEq/L Potassium (3.5-5.1) mEq/L Chloride (98-107) mEq/L Carbon Dioxide (21-32) mEq/L Anion Gap (5-15) BUN (7-18) mg/dL Creatinine (0.7-1.3) mg/dL Est Cr Clr Drug Dosing mL/min Estimated GFR (MDRD) (>60) mL/min BUN/Creatinine Ratio (14-18) Glucose (74-106) mg/dL Calcium (8.5-10.1) mg/dL Total Bilirubin (0.2-1.0) mg/dL GGT (15-85) U/L AST (15-37) U/L ALT (16-63) U/L Alkaline Phosphatase (46-116) U/L C-Reactive Protein (<1.0) mg/dL Total Protein (6.4-8.2) g/dl Albumin (3.4-5.0) g/dl Globulin gm/dL Albumin/Globulin Ratio (1-2) Lipase (73-393) U/L Urine Color Yellow (Yellow) Urine Appearance Cloudy H (Clear) Urine pH 8.5 H (5.0-8.0) Ur Specific [place] 1.020 (1.005-1.030) Urine Protein 1+ H (Negative) Urine Glucose (UA) Negative (Negative) Urine Ketones Negative (Negative) Urine Occult Blood Negative (Negative) Urine Nitrite Negative (Negative) Urine Bilirubin Negative (Negative) Urine Urobilinogen 1.0 (0.2-1.0) Ur Leukocyte Esterase Negative (Negative) Urine RBC Not seen (0-5) /hpf Urine WBC 0-5 (0-5) /hpf Ur Epithelial Cells Not Reportable Ur Squamous Epith Cells 0-5 (0-5) /hpf Amorphous Sediment Many H (NOT SEEN) /hpf Urine Bacteria Moderate H (FEW) /hpf Urine Mucus Not seen (FEW) /hpf Result Diagrams: 01/27/17 17:00 01/27/17 17:00 *Q Meaningful Use (ADM) - VTE *Q VTE Criteria *Q: - Stroke *Q Stroke Criteria *Q: - AMI *Q AMI Criteria *Q: Problem List Initiated/Reviewed/Updated: Yes Orders Last 24hrs: Active Orders 24 hr Category Date Time Status Peripheral IV Care [RC] . DIRECTED Care 01/27/17 17:16 Active NPO [Nothing Per Oral Diet] [DIET] Diet 01/27/17 Breakfast Active Abdomen Pelvis w Cont [CT] Stat Exams 01/27/17 19:49 Ordered Piperacillin/Tazobactam [Zosyn] 3.375 gm Med 01/27/17 20:00 Active Sodium Chloride 0.9% [Normal Saline] 100 ml IV ONETIME Sodium Chloride 0.9% [Normal Saline] 1,000 ml Med 01/27/17 17:30 Active IV ASDIRECTED Sodium Chloride 0.9% [Normal Saline] 1,000 ml Med 01/27/17 19:55 Active IV ONETIME Sodium Chloride 0.9% [Normal Saline] 1,000 ml Med 01/27/17 20:04 Active IV ONETIME Sodium Chloride 0.9% [Saline Flush] Med 01/27/17 17:16 Active 10 ml FLUSH ASDIRECTED PRN Peripheral IV Insertion Adult [OM.PC] Stat Oth 01/27/17 17:15 Ordered Medication Orders Sodium Chloride (Normal Saline) 1,000 mls @ 250 mls/hr IV ASDIRECTED [facility] Last Admin: 01/27/17 17:41 Dose: 250 mls/hr Sodium Chloride (Normal Saline) 1,000 mls @ 999 mls/hr IV ONETIME ONE Stop: 01/27/17 20:55 Piperacillin Sod/Tazobactam (Sod 3.375 gm/ Sodium Chloride) 100 mls @ 200 mls/ hr IV ONETIME ONE Stop: 01/27/17 20:29 Last Admin: 01/27/17 20:18 Dose: 200 mls/hr Sodium Chloride (Normal Saline) 1,000 mls @ 999 mls/hr IV ONETIME ONE Stop: 01/27/17 21:04 Sodium Chloride (Saline Flush) 10 ml FLUSH ASDIRECTED PRN PRN Reason: Keep Vein Open Last Admin: 01/27/17 17:50 Dose: 10 ml Assessment/Plan Comment:: Assessment/Plan: Acute Pancreatitis - 2/2 [place] [address] - Carries hx/o Chronic Mild ETOH Use - CT scan in 05/03/2016: showed multiple calcified gallstone - Abdominal CT scan: pending - U/S GB: GB Stones but no GS in CBD - Jelani's Criteria: Incomplete with missing LDH and Trig level - Supportive Care, IV Fluids, Pain Medications and IV Abx - NPO until level improves except ice chips, meds and sips of water - Dr. Abrams consulted Elevated LFTs/Transaminitis - 2/2 GD Disease and Chronic ETOH Use - Will monitor Leukocytosis - 2/2 # Above - Will obtain CRP - Monitor Chronic Mild ETOH Use - Monitor - CIWA Protocol if needed - Ativan PRN per Protocol if needed Plan: Admit to the floor Routine AM labs Continue home meds +/- MRCP in AM Supportive Care CRP to monitor response to treatment Additional orders as above SW/CM for d/c planning Code Status:1
[2017-01-27] MEDS ORDERED: Promethazine 12.5 MG in Sodium Chloride 0.9% 50 ML IV PRN (20:34)
[2017-01-27] MEDS ORDERED: Ondansetron 4 MG/2 ML SDV IV PRN (20:34)
[2017-01-27] MEDS ORDERED: Bisacodyl 5 MG Tab PO PRN (20:36)
[2017-01-27] MEDS ORDERED: LORazepam 2 MG/ML MDV IV PRN (20:36)
[2017-01-27] MEDS ORDERED: Polyethylene Glycol 3350 Powder 17 GM Packet PO PRN (20:36)
[2017-01-27] MEDS ORDERED: Temazepam 15 MG Cap PO PRN (20:36)
[2017-01-27] MEDS ORDERED: Albuterol/Ipratropium 3.0-0.5 MG/3 ML Neb Soln NEB PRN (20:36)
[2017-01-27] MEDS ORDERED: Metoprolol Tartrate 5 MG/5 ML SDV IVPUSH PRN (20:39)
[2017-01-27] MEDS ORDERED: hydrALAZINE 20 MG/ML SDV IVPUSH PRN (20:39)
[2017-01-27] MEDS ORDERED: Scopolamine 1.5 MG Transdermal Patch TOP ONE (20:40)
--- NOTE | 2017-01-27 21:04 | CT ---
CT abdomen and pelvis Technique: Multiple axial sections were obtained from the top the liver inferiorly through the pubic symphysis. Intravenous contrast was utilized. No oral contrast was given which limits evaluation of bowel and structures around the bowel. Comparison: Previous noncontrast CT exam of 05/03/16 is available as well as ultrasound exam performed on the same day as current CT study at time 6:49 PM. Findings: Visualized lung bases shows nothing acute. Liver shows no focal abnormality. Gallbladder bladder shows gallstones. Spleen appears within normal limits. Adrenal glands show no nodule. Pancreas is within normal limits. Aorta shows no aneurysmal dilatation. No retroperitoneal adenopathy or mesenteric abnormalities are seen. Appendix is seen which appears normal in size. No pelvic mass or adenopathy is seen. Delayed images shows contrast within the distal ureters as well as contrast being seen within the bladder. No free fluid or inflammatory change is seen within the abdomen or pelvis. There are some slightly prominent fluid-filled small bowel loops within the left abdomen raising the possibility of gastroenteritis. Bone window settings were reviewed which shows disc space narrowing at L4-L5. Previous surgery with trans-pedicle screws are noted at L5-S1. Impression: 1. Slightly prominent fluid-filled small bowel loops of the left abdomen raising the possibility of gastroenteritis. 2. Gallstones. 3. Other incidental findings as described above. Diagnostic code #3
[2017-01-27] MEDS: Saccharomyces Boulardii (Probiotic) 250 MG Cap PO SCH (23:27)
[2017-01-27] MEDS: Nicotine 21 MG/24 Hr Patch TRDERM SCH (23:27)
[2017-01-27] MEDS: HYDROmorphone 1 MG/ML Syringe IVPUSH PRN (23:35)
[2017-01-28] MEDS: Dextrose 5%-0.45% NaCl 1,000 ML IV SCH ×3 (00:33→19:23)
[2017-01-28] MEDS: HYDROmorphone 1 MG/ML Syringe IVPUSH PRN ×7 (04:45→20:58)
[2017-01-28] MEDS: Piperacillin/Tazobactam 4.5 GM in Sodium Chloride 0.9% 100 ML IV SCH ×2 (04:47→11:12)
[2017-01-28] MEDS ORDERED: Acetaminophen 650 MG Supp RECTAL PRN (07:09)
[2017-01-28] MEDS ORDERED: Magnesium Oxide 400 MG Tab PO ONE (08:00)
[2017-01-28] MEDS: Enoxaparin 40 MG/0.4 ML Syringe SUBCUT SCH (08:29)
[2017-01-28] MEDS: Saccharomyces Boulardii (Probiotic) 250 MG Cap PO SCH ×2 (08:29→20:57)
[2017-01-28] MEDS: oxyCODONE ER 20 MG TAB.ER PO SCH ×2 (08:29→20:58)
[2017-01-28] MEDS: Nicotine 21 MG/24 Hr Patch TRDERM SCH (08:29)
--- NOTE | 2017-01-28 11:53 | PCM.PN ---
- General Info Date of Service: 01/28/17 Admission Dx/Problem (Free Text): Pancreatitis Reid is seen this morning. Reports pain to RUQ and rt abdomen is worsening despite pain medications. Pain is severe with movements. Nausea is improved with antiemetics, no vomiting. He is passing gas but no stool. VSS; afebrile. He remains NPO Functional Status: Reports: urinating. Denies: pain controlled, tolerating diet (NPO) - Review of Systems General: Reports: Weakness. Denies: Fever, Appetite HEENT: Reports: no symptoms Pulmonary: Reports: no symptoms. Denies: shortness of breath, cough Cardiovascular: Reports: No Symptoms. Denies: Chest Pain, Palpitations, Dyspnea on Exertion, Orthopnea, Lightheadedness Gastrointestinal: Reports: Abdominal pain, Decreased appetite, Nausea. Denies: Hematochezia, Melena, Vomiting Genitourinary: Reports: no symptoms Musculoskeletal: Reports: back pain (Rt sided abd pain radiating through to back ) Neurological: Reports: No Symptoms Psychiatric: Reports: no symptoms - Patient Data Vitals - most recent: Last Vital Signs Temp 99.0 F 01/28/17 09:16 Pulse 59 L 01/28/17 09:16 Resp 24 H 01/28/17 09:16 BP 115/75 01/28/17 09:16 Pulse Ox 96 01/28/17 09:16 Weight - most recent: 200 lb I&O - last 24 hours: Intake & Output 01/27/17 01/28/17 01/28/17 22:59 06:59 14:59 Intake Total 1506 Output Total 800 Balance 706 Lab Results last 24 hrs: Laboratory Results - last 24 hr 01/28/17 01/28/17 01/28/17 Range/Units 05:43 05:43 05:43 WBC 9.87 H (4.23-9.07) K/mm3 RBC 4.29 L (4.63-6.08) M/mm3 Hgb 13.4 L (13.7-17.5) gm/L Hct 39.5 L (40.1-51.0) % MCV 92.1 (79.0-92.2) fl MCH 31.2 (25.7-32.2) pg MCHC 33.9 (32.2-35.5) g/dl RDW Std Deviation 46.5 H (35.1-43.9) fL Plt Count 192 (163-337) K/mm3 MPV 9.9 (9.4-12.3) fl Neut % (Auto) 81.2 H (34.0-67.9) % Lymph % (Auto) 9.0 L (21.8-53.1) % [place] % (Auto) 8.1 (5.3-12.2) % Eos % (Auto) 1.5 (0.8-7.0) Baso % (Auto) 0.1 (0.1-1.2) % Neut # (Auto) 8.01 H (1.78-5.38) K/mm3 Lymph # (Auto) 0.89 L (1.32-3.57) K/mm3 [place] # (Auto) 0.80 (0.30-0.82) K/mm3 Eos # (Auto) 0.15 (0.04-0.54) K/mm3 Baso # (Auto) 0.01 (0.01-0.08) K/mm3 Manual Slide Review Normal smear Sodium 142 (136-145) mEq/L Potassium 3.8 (3.5-5.1) mEq/L Chloride 107 (98-107) mEq/L Carbon Dioxide 26 (21-32) mEq/L Anion Gap 12.8 (5-15) BUN 11 (7-18) mg/dL Creatinine 0.9 (0.7-1.3) mg/dL Est Cr Clr Drug Dosing 129.39 mL/min Estimated GFR (MDRD) > 60 (>60) mL/min BUN/Creatinine Ratio 12.2 L (14-18) Glucose 119 H (74-106) mg/dL Calcium 8.3 L (8.5-10.1) mg/dL Magnesium 1.9 (1.8-2.4) mg/dl C-Reactive Protein 1.3 H* (<1.0) mg/dL Lipase 10423 H (73-393) U/L Med Orders - Current: Current Medications Acetaminophen (Tylenol) 650 mg RECTAL Q6H PRN PRN Reason: Fever Albuterol/Ipratropium (Duoneb 3.0-0.5 Mg/3 Ml) 3 ml NEB Q4H PRN PRN Reason: Shortness Of Breath/wheezing Bisacodyl (Dulcolax) 5 mg PO DAILY PRN PRN Reason: Constipation Enoxaparin Sodium (Lovenox) 40 mg SUBCUT DAILY [facility] Last Admin: 01/28/17 08:29 Dose: 40 mg Hydralazine HCl (Apresoline) 20 mg IVPUSH Q4H PRN PRN Reason: Hypertension Hydromorphone HCl (Dilaudid) 1 mg IVPUSH Q4H PRN PRN Reason: Pain (severe 7-10) Last Admin: 01/28/17 09:38 Dose: 1 mg Hydromorphone HCl (Dilaudid) 1 - 2 mg IVPUSH Q1H PRN PRN Reason: Pain Last Admin: 01/28/17 11:12 Dose: 1 mg Promethazine HCl 12.5 mg/ (Sodium Chloride) 50.5 mls @ 100 mls/hr IV Q6H PRN PRN Reason: Nausea/Vomiting Dextrose/Sodium Chloride (Dextrose 5%-1/2 Ns) 1,000 mls @ 125 mls/hr IV ASDIRECTED [facility] Last Admin: 01/28/17 11:00 Dose: 125 mls/hr Piperacillin Sod/Tazobactam (Sod 4.5 gm/ Sodium Chloride) 100 mls @ 25 mls/hr IV Q8H [facility] Last Admin: 01/28/17 11:12 Dose: 25 mls/hr Magnesium Sulfate (Pharmacy To Dose - Magnesium Replacement) 1 dose .XX ASDIRECTED [facility] Metoprolol Tartrate (Lopressor) 5 mg IVPUSH Q4H PRN PRN Reason: Tachycardia Nicotine (Habitrol) 21 mg TRDERM DAILY [facility] Last Admin: 01/28/17 08:29 Dose: 21 mg Ondansetron HCl (Zofran) 4 mg IV Q6H PRN PRN Reason: Nausea/Vomiting Last Admin: 01/28/17 04:45 Dose: 4 mg Oxycodone HCl (Oxycontin) 20 mg PO Q12HR [facility] Last Admin: 01/28/17 08:29 Dose: 20 mg Polyethylene Glycol (Miralax) 17 gm PO DAILY PRN PRN Reason: Constipation Potassium Chloride (Pharmacy To Dose - Potassium Replacement) 1 dose .XX ASDIRECTED [facility] Saccharomyces Boulardii (Florastor) 500 mg PO BID [facility] Last Admin: 01/28/17 08:29 Dose: 500 mg Senna/Docusate Sodium (Senna Plus) 1 tab PO BID PRN PRN Reason: Constipation Temazepam (Restoril) 30 mg PO BEDTIME PRN PRN Reason: Sleep Discontinued Medications Al Hydroxide/Mg Hydroxide 30 (ml/ Lidocaine HCl 15 ml) 0 ml PO ONETIME ONE Stop: 01/27/17 17:17 Last Admin: 01/27/17 17:47 Dose: 45 ml Hydromorphone HCl (Dilaudid) 1 mg IVPUSH ONETIME ONE Stop: 01/27/17 17:17 Last Admin: 01/27/17 17:42 Dose: 1 mg Hydromorphone HCl (Dilaudid) 1 mg IVPUSH ONETIME ONE Stop: 01/27/17 18:44 Last Admin: 01/27/17 18:48 Dose: 1 mg Hydromorphone HCl (Dilaudid) 1 mg IVPUSH ONETIME ONE Stop: 01/27/17 19:46 Last Admin: 01/27/17 20:23 Dose: 1 mg Hyoscyamine (Hyomax-Sl) 0.125 mg SL ONETIME ONE Stop: 01/27/17 18:45 Last Admin: 01/27/17 18:49 Dose: 0.125 mg Sodium Chloride (Normal Saline) 1,000 mls @ 250 mls/hr IV ASDIRECTED [facility] Stop: 01/27/17 21:29 Last Admin: 01/27/17 23:20 Dose: Not Given Sodium Chloride (Normal Saline) 1,000 mls @ 999 mls/hr IV ONETIME ONE Stop: 01/27/17 20:55 Last Admin: 01/27/17 21:11 Dose: 999 mls/hr Piperacillin Sod/Tazobactam (Sod 3.375 gm/ Sodium Chloride) 100 mls @ 200 mls/ hr IV ONETIME ONE Stop: 01/27/17 20:29 Last Admin: 01/27/17 21:42 Dose: Not Given Sodium Chloride (Normal Saline) 1,000 mls @ 999 mls/hr IV ONETIME ONE Stop: 01/27/17 21:04 Last Admin: 01/27/17 23:27 Dose: 999 mls/hr Piperacillin Sod/Tazobactam (Sod 4.5 gm/ Sodium Chloride) 100 mls @ 200 mls/hr IV ONETIME ONE Stop: 01/27/17 20:47 Last Admin: 01/27/17 20:18 Dose: 200 mls/hr Iopamidol (Isovue-300 (61%)) 125 ml IVPUSH ONETIME ONE Stop: 01/27/17 20:14 Last Admin: 01/27/17 20:43 Dose: 125 ml Lorazepam (Ativan) 1 mg IV Q6H PRN PRN Reason: Anxiety Magnesium Oxide (Magnesium Oxide) 400 mg PO ONETIME ONE Stop: 01/28/17 08:01 Last Admin: 01/28/17 08:29 Dose: 400 mg Ondansetron HCl (Zofran) 4 mg IVPUSH ONETIME ONE Stop: 01/27/17 17:17 Last Admin: 01/27/17 17:45 Dose: 4 mg Scopolamine (Transderm-Scop) 1.5 mg TOP ONETIME ONE Stop: 01/27/17 20:41 Last Admin: 01/27/17 23:26 Dose: Not Given Sodium Chloride (Saline Flush) 10 ml FLUSH ASDIRECTED PRN PRN Reason: Keep Vein Open Last Admin: 01/27/17 17:50 Dose: 10 ml Sodium Chloride (Saline Flush) 10 ml FLUSH ONETIME ONE Stop: 01/27/17 20:14 Last Admin: 01/27/17 20:43 Dose: 10 ml Temazepam (Restoril) 30 mg PO BEDTIME PRN PRN Reason: Sleep - Exam Quality Assessment: DVT prophylaxis General: alert, oriented, cooperative, no acute distress HEENT: Pupils equal, Pupils reactive, EOMI, Mucous membr. moist/pink Neck: supple Lungs: Clear to auscultation, Normal respiratory effort, Decreased breath sounds (to bases; difficult to take deep breaths d/t increasing abd pain with deep inspirations) Cardiovascular: Regular Rate, Regular Rhythm, No Murmurs Abdomen: guarding, tenderness (diffuse; worse to rt side), abnormal bowel sounds (hypoactive). No: rigidity, rebound, distension (Male) Exam: Deferred Extremities: no edema, no calf tenderness Peripheral Pulses: 1+: Dorsalis Pedis (L), Dorsalis Pedis (R) Skin: warm, dry, intact, other (multiple tattoos present) Neurological: no new focal deficit Psy/Mental Status: alert, anxious (due to increasing pain; appropriate and answers all ?'s appropriately today) - Problem List & Annotations (1) Pancreatitis, gallstone SNOMED Code(s): 38520964 Code(s): K85.10 - BILIARY ACUTE PANCREATITIS WITHOUT NECROSIS OR INFECTION Status: Acute Priority: High Current Visit: Yes (2) Abdominal pain SNOMED Code(s): 16760959 Code(s): R10.9 - UNSPECIFIED ABDOMINAL PAIN Status: Acute Priority: High Current Visit: Yes - Problem List Review Problem List Initiated/Reviewed/Updated: Yes - My Orders Last 24 Hours: My Active Orders 01/28/17 07:09 Acetaminophen [Tylenol] 650 mg RECTAL Q6H PRN 01/28/17 11:03 HYDROmorphone [Dilaudid] 1 - 2 mg IVPUSH Q1H PRN 01/28/17 11:43 Abdomen wo Cont [MR] Routine - Plan Plan:: Assessment/Plan: Acute Pancreatitis - 2/2 [place] [address]--> 11, 874 today - Carries hx/o Chronic Mild ETOH Use - CT scan in 05/03/2016: showed multiple calcified gallstone - Abdominal CT scan: without evidence of infectious/necrosis etiology - U/S GB: GB Stones but no GS in CBD noted - Jelani's Criteria: Incomplete with missing LDH and Trig level initially; triglycerides 209 - Supportive Care, IV Fluids, Pain Medications; will DC IV abx as WBC and CRP unremarkable for infectious process - NPO until lipase improves - Dr. Abrams consulted -As pain escalating this morning will order MRCP now to r/o duct obstruction. Elevated LFTs/Transaminitis - 2/2 GD Disease and Chronic ETOH Use - Will monitor Leukocytosis---improved today - 2/2 # Above - Will obtain CRP - Monitor Chronic Mild ETOH Use - Monitor - CIWA Protocol if needed - Ativan PRN per Protocol if needed Plan: Admit to the floor Routine AM labs Continue home meds Supportive Care CRP to monitor response to treatment-- minimal elevation Additional orders as above SW/CM for d/c planning Code Status:1
--- NOTE | 2017-01-28 12:33 | CR ---
Skull: 2 views of the skull were obtained centered to the orbits. Visualized sinuses are clear. Surrounding bony structures are intact. No radiopaque foreign object is seen. Impression: 1. Nothing seen to contraindicate scheduled MRI. Diagnostic code #1
--- NOTE | 2017-01-28 14:06 | MR ---
MRI abdomen Technique: Various sequences were obtained in axial and coronal planes. MRCP also was obtained. Intravenous contrast was not given. Findings: Liver shows no focal abnormality. Gallstones seen within the gallbladder. Spleen size is normal. Respiratory motion is noted throughout the exam. Mild amount of fluid is seen around the pancreas. Findings may represent mild pancreatitis. Kidneys appear unremarkable. Aorta shows no aneurysmal dilatation. Adrenal glands show no nodule. Common bile duct measures 8 mm which is at the upper limits of normal. No discrete filling defect seen to indicate stone within the CHD or CBD. Impression: 1. Small amount of fluid around the pancreas possibly due to mild pancreatitis. Common bile duct measures at the upper limits of normal at 8 mm. 2. Gallstones seen within the gallbladder. 3. No additional abnormality is identified on MRI study of the abdomen. Diagnostic code #3
[2017-01-28] MEDS ORDERED: Temazepam 30 MG Cap PO PRN (21:00)
[2017-01-29] MEDS: HYDROmorphone 1 MG/ML Syringe IVPUSH PRN ×2 (02:52→23:34)
[2017-01-29] MEDS: Dextrose 5%-0.45% NaCl 1,000 ML IV SCH ×3 (02:53→23:25)
--- NOTE | 2017-01-29 06:25 | PCM.PN ---
- General Info Date of Service: 01/29/17 Admission Dx/Problem (Free Text): Pancreatitis Reid is seen this morning. Reports pain to RUQ and rt abdomen is improved this morning. He was able to get some sleep last night; rec'd 2 doses of IV dilaudid overnight. He is passing gas. He is sitting up talking, smiling and laughing with me this morning; yesterday was in position due to pain. MRCP was done yesterday and is unremarkable. Dr. Abrams consulted yesterday and plans for surgery once labs and pain improved. VSS; afebrile. He remains NPO this morning. Functional Status: Reports: pain controlled (pain is improved today), ambulating , urinating. Denies: tolerating diet - Review of Systems General: Denies: Fever, Chills, Night Sweats HEENT: Reports: no symptoms Pulmonary: Reports: no symptoms. Denies: shortness of breath, cough Cardiovascular: Reports: No Symptoms. Denies: Chest Pain Gastrointestinal: Reports: Abdominal pain, Decreased appetite. Denies: Diarrhea , Nausea (resolved) Genitourinary: Reports: no symptoms Musculoskeletal: Reports: back pain (radiating from rt abdomen but significantly improved this morning) Skin: Reports: no symptoms Neurological: Reports: No Symptoms Psychiatric: Reports: no symptoms - Patient Data Vitals - most recent: Last Vital Signs Temp 98.4 F 01/28/17 23:07 Pulse 76 01/28/17 23:07 Resp 19 01/28/17 23:07 BP 99/56 L 01/28/17 23:07 Pulse Ox 95 01/28/17 23:07 Weight - most recent: 206 lb 9.6 oz I&O - last 24 hours: Intake & Output 01/28/17 01/28/17 01/29/17 14:59 22:59 06:59 Intake Total 1430 Output Total 450 Balance 1430 -450 Lab Results last 24 hrs: Laboratory Results - last 24 hr 01/28/17 01/28/17 01/28/17 Range/Units 05:34 05:43 05:43 WBC 9.87 H (4.23-9.07) K/mm3 RBC 4.29 L (4.63-6.08) M/mm3 Hgb 13.4 L (13.7-17.5) gm/L Hct 39.5 L (40.1-51.0) % MCV 92.1 (79.0-92.2) fl MCH 31.2 (25.7-32.2) pg MCHC 33.9 (32.2-35.5) g/dl RDW Std Deviation 46.5 H (35.1-43.9) fL Plt Count 192 (163-337) K/mm3 MPV 9.9 (9.4-12.3) fl Neut % (Auto) 81.2 H (34.0-67.9) % Lymph % (Auto) 9.0 L (21.8-53.1) % Kenton % (Auto) 8.1 (5.3-12.2) % Eos % (Auto) 1.5 (0.8-7.0) Baso % (Auto) 0.1 (0.1-1.2) % Neut # (Auto) 8.01 H (1.78-5.38) K/mm3 Lymph # (Auto) 0.89 L (1.32-3.57) K/mm3 Kenton # (Auto) 0.80 (0.30-0.82) K/mm3 Eos # (Auto) 0.15 (0.04-0.54) K/mm3 Baso # (Auto) 0.01 (0.01-0.08) K/mm3 Manual Slide Review Normal smear Sodium 142 (136-145) mEq/L Potassium 3.8 (3.5-5.1) mEq/L Chloride 107 (98-107) mEq/L Carbon Dioxide 26 (21-32) mEq/L Anion Gap 12.8 (5-15) BUN 11 (7-18) mg/dL Creatinine 0.9 (0.7-1.3) mg/dL Est Cr Clr Drug Dosing 129.39 mL/min Estimated GFR (MDRD) > 60 (>60) mL/min BUN/Creatinine Ratio 12.2 L (14-18) Glucose 119 H (74-106) mg/dL Calcium 8.3 L (8.5-10.1) mg/dL Magnesium 1.9 (1.8-2.4) mg/dl Total Bilirubin 2.0 H (0.2-1.0) mg/dL Direct Bilirubin 0.70 H (0.0-0.2) mg/dl Indirect Bilirubin 1.30 AST 286 H (15-37) U/L ALT 408 H (16-63) U/L Alkaline Phosphatase 123 H (46-116) U/L C-Reactive Protein 1.3 H* (<1.0) mg/dL Total Protein 6.4 (6.4-8.2) g/dl Albumin 3.5 (3.4-5.0) g/dl Globulin 2.9 gm/dL Albumin/Globulin Ratio 1.2 (1-2) Lipase (73-393) U/L 01/28/17 01/29/17 Range/Units 05:43 05:38 WBC 6.86 (4.23-9.07) K/mm3 RBC 4.09 L (4.63-6.08) M/mm3 Hgb 12.8 L (13.7-17.5) gm/L Hct 37.4 L (40.1-51.0) % MCV 91.4 (79.0-92.2) fl MCH 31.3 (25.7-32.2) pg MCHC 34.2 (32.2-35.5) g/dl RDW Std Deviation 43.7 (35.1-43.9) fL Plt Count 179 (163-337) K/mm3 MPV 9.7 (9.4-12.3) fl Neut % (Auto) 60.2 (34.0-67.9) % Lymph % (Auto) 25.9 (21.8-53.1) % Kenton % (Auto) 10.3 (5.3-12.2) % Eos % (Auto) 3.4 (0.8-7.0) Baso % (Auto) 0.1 (0.1-1.2) % Neut # (Auto) 4.12 (1.78-5.38) K/mm3 Lymph # (Auto) 1.78 (1.32-3.57) K/mm3 Kenton # (Auto) 0.71 (0.30-0.82) K/mm3 Eos # (Auto) 0.23 (0.04-0.54) K/mm3 Baso # (Auto) 0.01 (0.01-0.08) K/mm3 Manual Slide Review Sodium (136-145) mEq/L Potassium (3.5-5.1) mEq/L Chloride (98-107) mEq/L Carbon Dioxide (21-32) mEq/L Anion Gap (5-15) BUN (7-18) mg/dL Creatinine (0.7-1.3) mg/dL Est Cr Clr Drug Dosing mL/min Estimated GFR (MDRD) (>60) mL/min BUN/Creatinine Ratio (14-18) Glucose (74-106) mg/dL Calcium (8.5-10.1) mg/dL Magnesium (1.8-2.4) mg/dl Total Bilirubin (0.2-1.0) mg/dL Direct Bilirubin (0.0-0.2) mg/dl Indirect Bilirubin AST (15-37) U/L ALT (16-63) U/L Alkaline Phosphatase (46-116) U/L C-Reactive Protein (<1.0) mg/dL Total Protein (6.4-8.2) g/dl Albumin (3.4-5.0) g/dl Globulin gm/dL Albumin/Globulin Ratio (1-2) Lipase 27345 H (73-393) U/L Med Orders - Current: Current Medications Acetaminophen (Tylenol) 650 mg RECTAL Q6H PRN PRN Reason: Fever Albuterol/Ipratropium (Duoneb 3.0-0.5 Mg/3 Ml) 3 ml NEB Q4H PRN PRN Reason: Shortness Of Breath/wheezing Bisacodyl (Dulcolax) 5 mg PO DAILY PRN PRN Reason: Constipation Enoxaparin Sodium (Lovenox) 40 mg SUBCUT DAILY [facility] Last Admin: 01/28/17 08:29 Dose: 40 mg Hydralazine HCl (Apresoline) 20 mg IVPUSH Q4H PRN PRN Reason: Hypertension Hydromorphone HCl (Dilaudid) 1 - 2 mg IVPUSH Q1H PRN PRN Reason: Pain Last Admin: 01/29/17 02:52 Dose: 1 mg Promethazine HCl 12.5 mg/ (Sodium Chloride) 50.5 mls @ 100 mls/hr IV Q6H PRN PRN Reason: Nausea/Vomiting Dextrose/Sodium Chloride (Dextrose 5%-1/2 Ns) 1,000 mls @ 200 mls/hr IV ASDIRECTED [facility] Last Admin: 01/29/17 05:40 Dose: 200 mls/hr Magnesium Sulfate (Pharmacy To Dose - Magnesium Replacement) 1 dose .XX ASDIRECTED [facility] Metoprolol Tartrate (Lopressor) 5 mg IVPUSH Q4H PRN PRN Reason: Tachycardia Nicotine (Habitrol) 21 mg TRDERM DAILY [facility] Last Admin: 01/28/17 08:29 Dose: 21 mg Ondansetron HCl (Zofran) 4 mg IV Q6H PRN PRN Reason: Nausea/Vomiting Last Admin: 01/28/17 04:45 Dose: 4 mg Oxycodone HCl (Oxycontin) 20 mg PO Q12HR [facility] Last Admin: 01/28/17 20:58 Dose: Not Given Polyethylene Glycol (Miralax) 17 gm PO DAILY PRN PRN Reason: Constipation Potassium Chloride (Pharmacy To Dose - Potassium Replacement) 1 dose .XX ASDIRECTED [facility] Saccharomyces Boulardii (Florastor) 500 mg PO BID [facility] Last Admin: 01/28/17 20:57 Dose: 500 mg Senna/Docusate Sodium (Senna Plus) 1 tab PO BID PRN PRN Reason: Constipation Temazepam (Restoril) 30 mg PO BEDTIME PRN PRN Reason: Sleep Discontinued Medications Al Hydroxide/Mg Hydroxide 30 (ml/ Lidocaine HCl 15 ml) 0 ml PO ONETIME ONE Stop: 01/27/17 17:17 Last Admin: 01/27/17 17:47 Dose: 45 ml Hydromorphone HCl (Dilaudid) 1 mg IVPUSH ONETIME ONE Stop: 01/27/17 17:17 Last Admin: 01/27/17 17:42 Dose: 1 mg Hydromorphone HCl (Dilaudid) 1 mg IVPUSH ONETIME ONE Stop: 01/27/17 18:44 Last Admin: 01/27/17 18:48 Dose: 1 mg Hydromorphone HCl (Dilaudid) 1 mg IVPUSH ONETIME ONE Stop: 01/27/17 19:46 Last Admin: 01/27/17 20:23 Dose: 1 mg Hydromorphone HCl (Dilaudid) 1 mg IVPUSH Q4H PRN PRN Reason: Pain (severe 7-10) Last Admin: 01/28/17 09:38 Dose: 1 mg Hyoscyamine (Hyomax-Sl) 0.125 mg SL ONETIME ONE Stop: 01/27/17 18:45 Last Admin: 01/27/17 18:49 Dose: 0.125 mg Sodium Chloride (Normal Saline) 1,000 mls @ 250 mls/hr IV ASDIRECTED [facility] Stop: 01/27/17 21:29 Last Admin: 01/27/17 23:20 Dose: Not Given Sodium Chloride (Normal Saline) 1,000 mls @ 999 mls/hr IV ONETIME ONE Stop: 01/27/17 20:55 Last Admin: 01/27/17 21:11 Dose: 999 mls/hr Piperacillin Sod/Tazobactam (Sod 3.375 gm/ Sodium Chloride) 100 mls @ 200 mls/ hr IV ONETIME ONE Stop: 01/27/17 20:29 Last Admin: 01/27/17 21:42 Dose: Not Given Sodium Chloride (Normal Saline) 1,000 mls @ 999 mls/hr IV ONETIME ONE Stop: 01/27/17 21:04 Last Admin: 01/27/17 23:27 Dose: 999 mls/hr Dextrose/Sodium Chloride (Dextrose 5%-1/2 Ns) 1,000 mls @ 125 mls/hr IV ASDIRECTED [facility] Last Admin: 01/28/17 11:00 Dose: 125 mls/hr Piperacillin Sod/Tazobactam (Sod 4.5 gm/ Sodium Chloride) 100 mls @ 25 mls/hr IV Q8H [facility] Last Admin: 01/28/17 11:12 Dose: 25 mls/hr Piperacillin Sod/Tazobactam (Sod 4.5 gm/ Sodium Chloride) 100 mls @ 200 mls/hr IV ONETIME ONE Stop: 01/27/17 20:47 Last Admin: 01/27/17 20:18 Dose: 200 mls/hr Iopamidol (Isovue-300 (61%)) 125 ml IVPUSH ONETIME ONE Stop: 01/27/17 20:14 Last Admin: 01/27/17 20:43 Dose: 125 ml Lorazepam (Ativan) 1 mg IV Q6H PRN PRN Reason: Anxiety Magnesium Oxide (Magnesium Oxide) 400 mg PO ONETIME ONE Stop: 01/28/17 08:01 Last Admin: 01/28/17 08:29 Dose: 400 mg Ondansetron HCl (Zofran) 4 mg IVPUSH ONETIME ONE Stop: 01/27/17 17:17 Last Admin: 01/27/17 17:45 Dose: 4 mg Scopolamine (Transderm-Scop) 1.5 mg TOP ONETIME ONE Stop: 01/27/17 20:41 Last Admin: 01/27/17 23:26 Dose: Not Given Sodium Chloride (Saline Flush) 10 ml FLUSH ASDIRECTED PRN PRN Reason: Keep Vein Open Last Admin: 01/27/17 17:50 Dose: 10 ml Sodium Chloride (Saline Flush) 10 ml FLUSH ONETIME ONE Stop: 01/27/17 20:14 Last Admin: 01/27/17 20:43 Dose: 10 ml Temazepam (Restoril) 30 mg PO BEDTIME PRN PRN Reason: Sleep - Exam Quality Assessment: DVT prophylaxis General: alert, oriented, cooperative, no acute distress HEENT: Pupils equal, Pupils reactive, EOMI, Mucous membr. moist/pink Neck: supple Lungs: Clear to auscultation, Normal respiratory effort, Decreased breath sounds (bases bilat) Cardiovascular: Regular Rate, Regular Rhythm Abdomen: guarding (improved from yesterday), tenderness (right side; worse to RUQ. ). No: rebound, distension (Male) Exam: Deferred Back Exam: Normal Inspection Extremities: no edema, no calf tenderness Peripheral Pulses: 1+: Dorsalis Pedis (L), Dorsalis Pedis (R) Skin: warm, dry, intact, other (multiple tattoos) Neurological: no new focal deficit Psy/Mental Status: alert, normal affect, normal mood - Problem List & Annotations (1) Pancreatitis, gallstone SNOMED Code(s): 48448126 Code(s): K85.10 - BILIARY ACUTE PANCREATITIS WITHOUT NECROSIS OR INFECTION Status: Acute Priority: High Current Visit: Yes (2) Abdominal pain SNOMED Code(s): 59003960 Code(s): R10.9 - UNSPECIFIED ABDOMINAL PAIN Status: Acute Priority: High Current Visit: Yes - Problem List Review Problem List Initiated/Reviewed/Updated: Yes - My Orders Last 24 Hours: My Active Orders 01/28/17 07:09 Acetaminophen [Tylenol] 650 mg RECTAL Q6H PRN 01/28/17 11:03 HYDROmorphone [Dilaudid] 1 - 2 mg IVPUSH Q1H PRN 01/29/17 05:38 COMPREHENSIVE METABOLIC PN,CMP [CHEM] AM LIPASE [CHEM] AM - Plan Plan:: Assessment/Plan: Acute Pancreatitis - 2/2 [place] [address]--> 11, 874 today--> - Carries hx/o Chronic Mild ETOH Use - CT scan in 05/03/2016: showed multiple calcified gallstone - Abdominal CT scan: without evidence of infectious/necrosis etiology - U/S GB: GB Stones but no GS in CBD noted - Jelani's Criteria: Incomplete with missing LDH and Trig level initially; triglycerides 209 - Supportive Care, IV Fluids, Pain Medications; will DC IV abx as WBC and CRP unremarkable for infectious process - NPO until lipase improves --- is down to 1069 this am; will cont NPO until discuss with Dr. Abrams re: possible cholecystectomy today as pain and labs improved - Dr. Abrams consulted -MRCP done yesterday afternoon, without evidence of obstructing stone Elevated LFTs/Transaminitis - 2/2 GD Disease and Chronic ETOH Use - Will monitor/trend-- significantly improved today Leukocytosis---improved today; normal WBC today at 6.86 - 2/2 # Above - Will obtain CRP - Monitor Chronic Mild ETOH Use - Monitor - CIWA Protocol if needed-- not needed as of yet, cont close monitoring - Ativan PRN per Protocol if needed Plan: Admit to the floor Routine AM labs Continue home meds Supportive Care CRP to monitor response to treatment-- minimal elevation DVT/GI prophylax Ambulate QID Additional orders as above SW/CM for d/c planning Code Status:1
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
[2017-01-29] MEDS ORDERED: Magnesium Oxide 400 MG Tab PO ONE (08:30)
[2017-01-29] MEDS: Saccharomyces Boulardii (Probiotic) 250 MG Cap PO SCH ×2 (09:21→20:18)
[2017-01-29] MEDS: Nicotine 21 MG/24 Hr Patch TRDERM SCH (09:21)
[2017-01-29] MEDS: oxyCODONE ER 20 MG TAB.ER PO SCH ×2 (09:22→20:18)
[2017-01-29] MEDS: Enoxaparin 40 MG/0.4 ML Syringe SUBCUT SCH (09:22)
--- NOTE | 2017-01-29 11:42 | PCM.CONSN ---
- General Info Date of Service: 01/29/17 Functional Status: Reports: pain controlled - Review of Systems General: Reports: No Symptoms - Patient Data Vitals - most recent: Last Vital Signs Temp 99.0 F 01/29/17 09:18 Pulse 78 01/29/17 09:18 Resp 16 01/29/17 09:18 BP 131/81 01/29/17 09:18 Pulse Ox 100 01/29/17 09:18 Weight - most recent: 93.712 kg I&O - last 24 hours: Intake & Output 01/28/17 01/29/17 01/29/17 23:59 07:59 15:59 Intake Total 1430 Output Total 450 Balance 1430 -450 Lab Results last 24 hrs: Laboratory Results - last 24 hr 01/28/17 01/29/17 01/29/17 Range/Units 05:34 05:38 05:38 WBC 6.86 (4.23-9.07) K/mm3 RBC 4.09 L (4.63-6.08) M/mm3 Hgb 12.8 L (13.7-17.5) gm/L Hct 37.4 L (40.1-51.0) % MCV 91.4 (79.0-92.2) fl MCH 31.3 (25.7-32.2) pg MCHC 34.2 (32.2-35.5) g/dl RDW Std Deviation 43.7 (35.1-43.9) fL Plt Count 179 (163-337) K/mm3 MPV 9.7 (9.4-12.3) fl Neut % (Auto) 60.2 (34.0-67.9) % Lymph % (Auto) 25.9 (21.8-53.1) % Harrison % (Auto) 10.3 (5.3-12.2) % Eos % (Auto) 3.4 (0.8-7.0) Baso % (Auto) 0.1 (0.1-1.2) % Neut # (Auto) 4.12 (1.78-5.38) K/mm3 Lymph # (Auto) 1.78 (1.32-3.57) K/mm3 Harrison # (Auto) 0.71 (0.30-0.82) K/mm3 Eos # (Auto) 0.23 (0.04-0.54) K/mm3 Baso # (Auto) 0.01 (0.01-0.08) K/mm3 Sodium 137 (136-145) mEq/L Potassium 4.1 (3.5-5.1) mEq/L Chloride 105 (98-107) mEq/L Carbon Dioxide 27 (21-32) mEq/L Anion Gap 9.1 (5-15) BUN 8 (7-18) mg/dL Creatinine 0.9 (0.7-1.3) mg/dL Est Cr Clr Drug Dosing 129.39 mL/min Estimated GFR (MDRD) > 60 (>60) mL/min BUN/Creatinine Ratio 8.9 L (14-18) Glucose 107 H (74-106) mg/dL Calcium 8.0 L (8.5-10.1) mg/dL Magnesium 1.8 (1.8-2.4) mg/dl Total Bilirubin 2.0 H 1.1 H (0.2-1.0) mg/dL Direct Bilirubin 0.70 H (0.0-0.2) mg/dl Indirect Bilirubin 1.30 AST 286 H 79 H (15-37) U/L ALT 408 H 227 H (16-63) U/L Alkaline Phosphatase 123 H 115 (46-116) U/L C-Reactive Protein 4.9 H* (<1.0) mg/dL Total Protein 6.4 6.0 L (6.4-8.2) g/dl Albumin 3.5 3.0 L (3.4-5.0) g/dl Globulin 2.9 3.0 gm/dL Albumin/Globulin Ratio 1.2 1.0 (1-2) Lipase 1061 H (73-393) U/L Med Orders - Current: Current Medications Acetaminophen (Tylenol) 650 mg RECTAL Q6H PRN PRN Reason: Fever Albuterol/Ipratropium (Duoneb 3.0-0.5 Mg/3 Ml) 3 ml NEB Q4H PRN PRN Reason: Shortness Of Breath/wheezing Bisacodyl (Dulcolax) 5 mg PO DAILY PRN PRN Reason: Constipation Enoxaparin Sodium (Lovenox) 40 mg SUBCUT DAILY [facility] Last Admin: 01/29/17 09:22 Dose: Not Given Hydralazine HCl (Apresoline) 20 mg IVPUSH Q4H PRN PRN Reason: Hypertension Hydromorphone HCl (Dilaudid) 1 - 2 mg IVPUSH Q1H PRN PRN Reason: Pain Last Admin: 01/29/17 02:52 Dose: 1 mg Promethazine HCl 12.5 mg/ (Sodium Chloride) 50.5 mls @ 100 mls/hr IV Q6H PRN PRN Reason: Nausea/Vomiting Dextrose/Sodium Chloride (Dextrose 5%-1/2 Ns) 1,000 mls @ 200 mls/hr IV ASDIRECTED [facility] Last Admin: 01/29/17 05:40 Dose: 200 mls/hr Magnesium Sulfate (Pharmacy To Dose - Magnesium Replacement) 1 dose .XX ASDIRECTED [facility] Metoprolol Tartrate (Lopressor) 5 mg IVPUSH Q4H PRN PRN Reason: Tachycardia Nicotine (Habitrol) 21 mg TRDERM DAILY [facility] Last Admin: 01/29/17 09:21 Dose: 21 mg Ondansetron HCl (Zofran) 4 mg IV Q6H PRN PRN Reason: Nausea/Vomiting Last Admin: 01/28/17 04:45 Dose: 4 mg Oxycodone HCl (Oxycontin) 20 mg PO Q12HR [facility] Last Admin: 01/29/17 09:22 Dose: 20 mg Oxycodone/Acetaminophen (Percocet 325-5 Mg) 1 tab PO Q4H PRN PRN Reason: Pain Polyethylene Glycol (Miralax) 17 gm PO DAILY PRN PRN Reason: Constipation Potassium Chloride (Pharmacy To Dose - Potassium Replacement) 1 dose .XX ASDIRECTED [facility] Saccharomyces Boulardii (Florastor) 500 mg PO BID [facility] Last Admin: 01/29/17 09:21 Dose: 500 mg Senna/Docusate Sodium (Senna Plus) 1 tab PO BID PRN PRN Reason: Constipation Temazepam (Restoril) 30 mg PO BEDTIME PRN PRN Reason: Sleep Discontinued Medications Al Hydroxide/Mg Hydroxide 30 (ml/ Lidocaine HCl 15 ml) 0 ml PO ONETIME ONE Stop: 01/27/17 17:17 Last Admin: 01/27/17 17:47 Dose: 45 ml Hydromorphone HCl (Dilaudid) 1 mg IVPUSH ONETIME ONE Stop: 01/27/17 17:17 Last Admin: 01/27/17 17:42 Dose: 1 mg Hydromorphone HCl (Dilaudid) 1 mg IVPUSH ONETIME ONE Stop: 01/27/17 18:44 Last Admin: 01/27/17 18:48 Dose: 1 mg Hydromorphone HCl (Dilaudid) 1 mg IVPUSH ONETIME ONE Stop: 01/27/17 19:46 Last Admin: 01/27/17 20:23 Dose: 1 mg Hydromorphone HCl (Dilaudid) 1 mg IVPUSH Q4H PRN PRN Reason: Pain (severe 7-10) Last Admin: 01/28/17 09:38 Dose: 1 mg Hyoscyamine (Hyomax-Sl) 0.125 mg SL ONETIME ONE Stop: 01/27/17 18:45 Last Admin: 01/27/17 18:49 Dose: 0.125 mg Sodium Chloride (Normal Saline) 1,000 mls @ 250 [facility]: 01/27/17 21:29 Last Admin: 01/27/17 23:20 Dose: Not Given Sodium Chloride (Normal Saline) 1,000 mls @ 999 mls/hr IV ONETIME ONE Stop: 01/27/17 20:55 Last Admin: 01/27/17 21:11 Dose: 999 mls/hr Piperacillin Sod/Tazobactam (Sod 3.375 gm/ Sodium Chloride) 100 mls @ 200 mls/ hr IV ONETIME ONE Stop: 01/27/17 20:29 Last Admin: 01/27/17 21:42 Dose: Not Given Sodium Chloride (Normal Saline) 1,000 mls @ 999 mls/hr IV ONETIME ONE Stop: 01/27/17 21:04 Last Admin: 01/27/17 23:27 Dose: 999 mls/hr Dextrose/Sodium Chloride (Dextrose 5%-1/2 Ns) 1,000 mls @ 125 mls/hr IV ASDIRECTED [facility] Last Admin: 01/28/17 11:00 Dose: 125 mls/hr Piperacillin Sod/Tazobactam (Sod 4.5 gm/ Sodium Chloride) 100 mls @ 25 mls/hr IV Q8H [facility] Last Admin: 01/28/17 11:12 Dose: 25 mls/hr Piperacillin Sod/Tazobactam (Sod 4.5 gm/ Sodium Chloride) 100 mls @ 200 mls/hr IV ONETIME ONE Stop: 01/27/17 20:47 Last Admin: 01/27/17 20:18 Dose: 200 mls/hr Iopamidol (Isovue-300 (61%)) 125 ml IVPUSH ONETIME ONE Stop: 01/27/17 20:14 Last Admin: 01/27/17 20:43 Dose: 125 ml Lorazepam (Ativan) 1 mg IV Q6H PRN PRN Reason: Anxiety Magnesium Oxide (Magnesium Oxide) 400 mg PO ONETIME ONE Stop: 01/28/17 08:01 Last Admin: 01/28/17 08:29 Dose: 400 mg Magnesium Oxide (Magnesium Oxide) 400 mg PO ONETIME ONE Stop: 01/29/17 08:31 Last Admin: 01/29/17 09:22 Dose: 400 mg Ondansetron HCl (Zofran) 4 mg IVPUSH ONETIME ONE Stop: 01/27/17 17:17 Last Admin: 01/27/17 17:45 Dose: 4 mg Scopolamine (Transderm-Scop) 1.5 mg TOP ONETIME ONE Stop: 01/27/17 20:41 Last Admin: 01/27/17 23:26 Dose: Not Given Sodium Chloride (Saline Flush) 10 ml FLUSH ASDIRECTED PRN PRN Reason: Keep Vein Open Last Admin: 01/27/17 17:50 Dose: 10 ml Sodium Chloride (Saline Flush) 10 ml FLUSH ONETIME ONE Stop: 01/27/17 20:14 Last Admin: 01/27/17 20:43 Dose: 10 ml Temazepam (Restoril) 30 mg PO BEDTIME PRN PRN Reason: Sleep - Exam General: alert, oriented Neck: supple Lungs: Clear to auscultation, Normal respiratory effort Abdomen: bowel sounds present, soft, no tenderness (mild tenderness in the RUQ ) , no distension Consult PN Assessment/Plan Procedures: Procedures ASSAY OF LIPASE (05/03/16) COMPLETE CBC W/AUTO DIFF WBC (05/03/16) COMPREHEN METABOLIC PANEL (05/03/16) CT ABD & PELVIS W/O CONTRAST (05/03/16) ELECTROCARDIOGRAM TRACING (01/19/14) EMERGENCY DEPT VISIT (07/14/16) EMERGENCY DEPT VISIT (05/03/16) EMERGENCY DEPT VISIT (09/12/15) ROUTINE VENIPUNCTURE (05/03/16) THER/PROPH/DIAG INJ IV PUSH (05/03/16) THER/PROPH/DIAG INJ SC/IM (09/12/15) URINALYSIS AUTO W/SCOPE (05/03/16) X-RAY EXAM L-S SPINE 2/3 VWS (09/12/15) Problem List Initiated/Reviewed/Updated: Yes My Orders last 24 hours: My Active Orders 01/29/17 11:39 Verify Patient Consent Obtain [RC] ASDIRECTED 01/29/17 11:40 Schedule Procedure [COMM] Urgent pt improved lab reviewed pancreatits resolved due to gall stones plan lap jannette with IOC discussed the risk and complciations drawing out the procedure and risk and complications pt understand and consents.
[2017-01-29] MEDS ORDERED: Lidocaine 1% 6 ML ONE (12:19)
[2017-01-29] MEDS ORDERED: ceFAZolin 1 GM Vial ONE (12:19)
[2017-01-29] MEDS ORDERED: Dexamethasone 4 MG/ML 5 ML MDV ONE (12:19)
[2017-01-29] MEDS ORDERED: Ondansetron 4 MG/2 ML SDV ONE (12:19)
[2017-01-29] MEDS ORDERED: Ketorolac 30 MG/ML SDV ONE (12:19)
[2017-01-29] MEDS ORDERED: Lactated Ringers 2,000 ML ONE (12:19)
[2017-01-29] MEDS ORDERED: HYDROmorphone 1 MG/ML Syringe ONE ×2 (12:19→13:23)
[2017-01-29] MEDS ORDERED: Rocuronium 50 MG/5 ML Vial ONE (12:19)
[2017-01-29] MEDS ORDERED: Midazolam 1 MG/ML 2 ML SDV ONE (12:20)
[2017-01-29] MEDS ORDERED: Propofol 200 MG/20 ML SDV ONE (12:20)
[2017-01-29] MEDS ORDERED: fentaNYL 250 MCG/5 ML SDV ONE (12:21)
--- NOTE | 2017-01-29 12:30 | PCM.PREANE ---
Preanesthetic Assessment - Anesthesia/Transfusion/Family Hx Anesthesia History: Prior Anesthesia Without Reaction Family History of Anesthesia Reaction: No Transfusion History: No Prior Transfusion(s) Intubation History: Unknown - Review of Systems General: Fever, Chills Pulmonary: No Symptoms (smokes 1 pack/day times 10 years.) Cardiovascular: No Symptoms Gastrointestinal: No symptoms (GERD) Neurological: No Symptoms (chronic lower back pain since lumbar/sacral fusion 1999) Other: Reports: None - Physical Assessment NPO Status Date: 01/27/17 NPO Status Time: 10:30 Pulse: 78 O2 Sat by Pulse Oximetry: 100 Respiratory Rate: 16 Blood Pressure: 131/81 Temperature: 37.2 C Vital Signs: Last Vital Signs Temp 37.2 C 01/29/17 09:18 Pulse 78 01/29/17 09:18 Resp 16 01/29/17 09:18 BP 131/81 01/29/17 09:18 Pulse Ox 100 01/29/17 09:18 Height: 1.88 m Weight: 93.712 kg ASA Class: 2E Mental Status: Alert & Oriented x3 Airway Class: Mallampati = 2 Dentition: Reports: Normal Dentition, Caries Thyro-Mental Finger Breadths: 3 Mouth Opening Finger Breadths: 3 ROM/Head Extension: Full Lungs: Clear to auscultation, Normal respiratory effort Cardiovascular: Regular Rate, Regular Rhythm - Lab Values: Laboratory Last Values WBC 6.86 K/mm3 (4.23-9.07) 01/29/17 05:38 RBC 4.09 M/mm3 (4.63-6.08) L 01/29/17 05:38 Hgb 12.8 gm/L (13.7-17.5) L 01/29/17 05:38 Hct 37.4 % (40.1-51.0) L 01/29/17 05:38 MCV 91.4 fl (79.0-92.2) 01/29/17 05:38 MCH 31.3 pg (25.7-32.2) 01/29/17 05:38 MCHC 34.2 g/dl (32.2-35.5) 01/29/17 05:38 RDW Std Deviation 43.7 fL (35.1-43.9) 01/29/17 05:38 Plt Count 179 K/mm3 (163-337) 01/29/17 05:38 MPV 9.7 fl (9.4-12.3) 01/29/17 05:38 Neut % (Auto) 60.2 % (34.0-67.9) 01/29/17 05:38 Lymph % (Auto) 25.9 % (21.8-53.1) 01/29/17 05:38 [place] % (Auto) 10.3 % (5.3-12.2) 01/29/17 05:38 Eos % (Auto) 3.4 (0.8-7.0) 01/29/17 05:38 Baso % (Auto) 0.1 % (0.1-1.2) 01/29/17 05:38 Neut # (Auto) 4.12 K/mm3 (1.78-5.38) 01/29/17 05:38 Lymph # (Auto) 1.78 K/mm3 (1.32-3.57) 01/29/17 05:38 [place] # (Auto) 0.71 K/mm3 (0.30-0.82) 01/29/17 05:38 Eos # (Auto) 0.23 K/mm3 (0.04-0.54) 01/29/17 05:38 Baso # (Auto) 0.01 K/mm3 (0.01-0.08) 01/29/17 05:38 Manual Slide Review Normal smear 01/28/17 05:43 Sodium 137 mEq/L (136-145) 01/29/17 05:38 Potassium 4.1 mEq/L (3.5-5.1) 01/29/17 05:38 Chloride 105 mEq/L (98-107) 01/29/17 05:38 Carbon Dioxide 27 mEq/L (21-32) 01/29/17 05:38 Anion Gap 9.1 (5-15) 01/29/17 05:38 BUN 8 mg/dL (7-18) 01/29/17 05:38 Creatinine 0.9 mg/dL (0.7-1.3) 01/29/17 05:38 Est Cr Clr Drug Dosing 129.39 mL/min 01/29/17 05:38 Estimated GFR (MDRD) > 60 mL/min (>60) 01/29/17 05:38 BUN/Creatinine Ratio 8.9 (14-18) L 01/29/17 05:38 Glucose 107 mg/dL (74-106) H 01/29/17 05:38 Lactic Acid 0.9 mmol/L (0.4-2.0) 01/27/17 21:05 Calcium 8.0 mg/dL (8.5-10.1) L 01/29/17 05:38 Magnesium 1.8 mg/dl (1.8-2.4) 01/29/17 05:38 Total Bilirubin 1.1 mg/dL (0.2-1.0) H 01/29/17 05:38 Direct Bilirubin 0.70 mg/dl (0.0-0.2) H 01/28/17 05:34 Indirect Bilirubin 1.30 01/28/17 05:34 GGT 271 U/L (15-85) H 01/27/17 17:00 AST 79 U/L (15-37) H 01/29/17 05:38 ALT 227 U/L (16-63) H 01/29/17 05:38 Alkaline Phosphatase 115 U/L (46-116) 01/29/17 05:38 Lactate Dehydrogenase 366 U/L (85-227) H 01/27/17 17:00 C-Reactive Protein 4.9 mg/dL (<1.0) H* 01/29/17 05:38 Total Protein 6.0 g/dl (6.4-8.2) L 01/29/17 05:38 Albumin 3.0 g/dl (3.4-5.0) L 01/29/17 05:38 Globulin 3.0 gm/dL 01/29/17 05:38 Albumin/Globulin Ratio 1.0 (1-2) 01/29/17 05:38 Triglycerides 209 mg/dL (<150) H 01/27/17 17:00 Cholesterol 200 mg/dL (<200) 01/27/17 17:00 LDL Cholesterol Direct 109 mg/dL (<100) H* 01/27/17 17:00 HDL Cholesterol 49.0 mg/dL (40-59) 01/27/17 17:00 Lipase 1061 U/L (73-393) H 01/29/17 05:38 Urine Color Yellow (Yellow) 01/27/17 17:56 Urine Appearance Cloudy (Clear) H 01/27/17 17:56 Urine pH 8.5 (5.0-8.0) H 01/27/17 17:56 Ur Specific [place] 1.020 (1.005-1.030) 01/27/17 17:56 Urine Protein 1+ (Negative) H 01/27/17 17:56 Urine Glucose (UA) Negative (Negative) 01/27/17 17:56 Urine Ketones Negative (Negative) 01/27/17 17:56 Urine Occult Blood Negative (Negative) 01/27/17 17:56 Urine Nitrite Negative (Negative) 01/27/17 17:56 Urine Bilirubin Negative (Negative) 01/27/17 17:56 Urine Urobilinogen 1.0 (0.2-1.0) 01/27/17 17:56 Ur Leukocyte Esterase Negative (Negative) 01/27/17 17:56 Urine RBC Not seen /hpf (0-5) 01/27/17 17:56 Urine WBC 0-5 /hpf (0-5) 01/27/17 17:56 Ur Epithelial Cells Not Reportable 01/27/17 17:56 Ur Squamous Epith Cells 0-5 /hpf (0-5) 01/27/17 17:56 Amorphous Sediment Many /hpf (NOT SEEN) H 01/27/17 17:56 Urine Bacteria Moderate /hpf (FEW) H 01/27/17 17:56 Urine Mucus Not seen /hpf (FEW) 01/27/17 17:56 Elevated liver enzymes noted, otherwise above labs noted and reviewed and acceptable to proceed with scheduled surgery. - Imaging/EKG Impressions: EKG: SR ratge=74, ST elevation, probable early repol. pattern/ 01/19/2014.....No cardiac history reported by patient. - Allergies Allergies/Adverse Reactions: Allergies Allergy/AdvReac Type Severity Reaction Status Date / Time No Known Allergies Allergy Verified 01/27/17 16:49 - Anesthesia Plan Pre-Op Medication Ordered: None - Acknowledgements Anesthesia Type Planned: General Anesthesia Pt an Appropriate Candidate for the Planned Anesthesia: Yes Alternatives and Risks of Anesthesia Discussed w Pt/Guardian: Yes Pt/Guardian Understands and Agrees with Anesthesia Plan: Yes PreAnesthesia Questionnaire Musculoskeletal History: Reports: Back Pain, Chronic - Past Surgical History GI Surgical History: Reports: Hernia Repair/Other Neurological Surgical History: Reports: Spinal Fusion Musculoskeletal Surgical History: Reports: Other (See Below) Other Musculoskeletal Surgeries/Procedures:: back surgery - SUBSTANCE USE Smoking Status *Q: Current Every Day Smoker Tobacco Use Within Last Twelve Months: Cigarettes Days Per Week of Alcohol Use: 2 Number of Drinks Per Day: 4 Total Drinks Per Week: 8 Date of Last Drink: 01/24/17 Recreational Drug Use History: Yes Recreational Drug Type: Reports: Marijuana/Hashish - HOME MEDS Home Medications: Home Meds . [No Known Home Meds] 01/27/17 [History] - CURRENT (IN HOUSE) MEDS Current Meds: Current Medications Acetaminophen (Tylenol) 650 mg RECTAL Q6H PRN PRN Reason: Fever Albuterol/Ipratropium (Duoneb 3.0-0.5 Mg/3 Ml) 3 ml NEB Q4H PRN PRN Reason: Shortness Of Breath/wheezing Bisacodyl (Dulcolax) 5 mg PO DAILY PRN PRN Reason: Constipation Enoxaparin Sodium (Lovenox) 40 mg SUBCUT DAILY [facility] Last Admin: 01/29/17 09:22 Dose: Not Given Hydralazine HCl (Apresoline) 20 mg IVPUSH Q4H PRN PRN Reason: Hypertension Hydromorphone HCl (Dilaudid) 1 - 2 mg IVPUSH Q1H PRN PRN Reason: Pain Last Admin: 01/29/17 02:52 Dose: 1 mg Promethazine HCl 12.5 mg/ (Sodium Chloride) 50.5 mls @ 100 mls/hr IV Q6H PRN PRN Reason: Nausea/Vomiting Dextrose/Sodium Chloride (Dextrose 5%-1/2 Ns) 1,000 mls @ 200 mls/hr IV ASDIRECTED [facility] Last Admin: 01/29/17 05:40 Dose: 200 mls/hr Magnesium Sulfate (Pharmacy To Dose - Magnesium Replacement) 1 dose .XX ASDIRECTED [facility] Metoprolol Tartrate (Lopressor) 5 mg IVPUSH Q4H PRN PRN Reason: Tachycardia Nicotine (Habitrol) 21 mg TRDERM DAILY [facility] Last Admin: 01/29/17 09:21 Dose: 21 mg Ondansetron HCl (Zofran) 4 mg IV Q6H PRN PRN Reason: Nausea/Vomiting Last Admin: 01/28/17 04:45 Dose: 4 mg Oxycodone HCl (Oxycontin) 20 mg PO Q12HR [facility] Last Admin: 01/29/17 09:22 Dose: 20 mg Oxycodone/Acetaminophen (Percocet 325-5 Mg) 1 tab PO Q4H PRN PRN Reason: Pain Polyethylene Glycol (Miralax) 17 gm PO DAILY PRN PRN Reason: Constipation Potassium Chloride (Pharmacy To Dose - Potassium Replacement) 1 dose .XX ASDIRECTED [facility] Saccharomyces Boulardii (Florastor) 500 mg PO BID [facility] Last Admin: 01/29/17 09:21 Dose: 500 mg Senna/Docusate Sodium (Senna Plus) 1 tab PO BID PRN PRN Reason: Constipation Temazepam (Restoril) 30 mg PO BEDTIME PRN PRN Reason: Sleep Discontinued Medications Bupivacaine HCl (Marcaine 0.5%) Confirm Administered Dose 30 ml .ROUTE .STK-MED ONE Stop: 01/29/17 12:05 Cefazolin Sodium (Ancef) Confirm Administered Dose 2 gm .ROUTE .STK-MED ONE Stop: 01/29/17 12:20 Al Hydroxide/Mg Hydroxide 30 (ml/ Lidocaine HCl 15 ml) 0 ml PO ONETIME ONE Stop: 01/27/17 17:17 Last Admin: 01/27/17 17:47 Dose: 45 ml Dexamethasone (Dexamethasone) Confirm Administered Dose 20 mg .ROUTE .STK-MED ONE Stop: 01/29/17 12:20 Fentanyl (Sublimaze) Confirm Administered Dose 250 mcg .ROUTE .STK-MED ONE Stop: 01/29/17 12:22 Hydromorphone HCl (Dilaudid) 1 mg IVPUSH ONETIME ONE Stop: 01/27/17 17:17 Last Admin: 01/27/17 17:42 Dose: 1 mg Hydromorphone HCl (Dilaudid) 1 mg IVPUSH ONETIME ONE Stop: 01/27/17 18:44 Last Admin: 01/27/17 18:48 Dose: 1 mg Hydromorphone HCl (Dilaudid) 1 mg IVPUSH ONETIME ONE Stop: 01/27/17 19:46 Last Admin: 01/27/17 20:23 Dose: 1 mg Hydromorphone HCl (Dilaudid) 1 mg IVPUSH Q4H PRN PRN Reason: Pain (severe 7-10) Last Admin: 01/28/17 09:38 Dose: 1 mg Hydromorphone HCl (Dilaudid) Confirm Administered Dose 1 mg .ROUTE .STK-MED ONE Stop: 01/29/17 12:20 Hyoscyamine (Hyomax-Sl) 0.125 mg SL ONETIME ONE Stop: 01/27/17 18:45 Last Admin: 01/27/17 18:49 Dose: 0.125 mg Sodium Chloride (Normal Saline) 1,000 mls @ 250 mls/hr IV ASDIRECTED [facility] Stop: 01/27/17 21:29 Last Admin: 01/27/17 23:20 Dose: Not Given Sodium Chloride (Normal Saline) 1,000 mls @ 999 mls/hr IV ONETIME ONE Stop: 01/27/17 20:55 Last Admin: 01/27/17 21:11 Dose: 999 mls/hr Piperacillin Sod/Tazobactam (Sod 3.375 gm/ Sodium Chloride) 100 mls @ 200 mls/ hr IV ONETIME ONE Stop: 01/27/17 20:29 Last Admin: 01/27/17 21:42 Dose: Not Given Sodium Chloride (Normal Saline) 1,000 mls @ 999 mls/hr IV ONETIME ONE Stop: 01/27/17 21:04 Last Admin: 01/27/17 23:27 Dose: 999 mls/hr Dextrose/Sodium Chloride (Dextrose 5%-1/2 Ns) 1,000 mls @ 125 mls/hr IV ASDIRECTED [facility] Last Admin: 01/28/17 11:00 Dose: 125 mls/hr Piperacillin Sod/Tazobactam (Sod 4.5 gm/ Sodium Chloride) 100 mls @ 25 mls/hr IV Q8H [facility] Last Admin: 01/28/17 11:12 Dose: 25 mls/hr Piperacillin Sod/Tazobactam (Sod 4.5 gm/ Sodium Chloride) 100 mls @ 200 mls/hr IV ONETIME ONE Stop: 01/27/17 20:47 Last Admin: 01/27/17 20:18 Dose: 200 mls/hr Lidocaine HCl (Xylocaine-Mpf 1%) Confirm Administered Dose 6 mls @ as directed .ROUTE .STK-MED ONE Stop: 01/29/17 12:20 Lactated Ringer's (Ringers, Lactated) Confirm Administered Dose 2,000 mls @ as directed .ROUTE .STK-MED ONE Stop: 01/29/17 12:20 Iopamidol (Isovue-300 (61%)) 125 ml IVPUSH ONETIME ONE Stop: 01/27/17 20:14 Last Admin: 01/27/17 20:43 Dose: 125 ml Iopamidol (Isovue-300 (61%)) Confirm Administered Dose 50 ml .ROUTE .STK-MED ONE Stop: 01/29/17 12:05 Ketorolac Tromethamine (Toradol) Confirm Administered Dose 30 mg .ROUTE .STK- MED ONE Stop: 01/29/17 12:20 Lorazepam (Ativan) 1 mg IV Q6H PRN PRN Reason: Anxiety Magnesium Oxide (Magnesium Oxide) 400 mg PO ONETIME ONE Stop: 01/28/17 08:01 Last Admin: 01/28/17 08:29 Dose: 400 mg Magnesium Oxide (Magnesium Oxide) 400 mg PO ONETIME ONE Stop: 01/29/17 08:31 Last Admin: 01/29/17 09:22 Dose: 400 mg Midazolam HCl (Versed 1 Mg/Ml) Confirm Administered Dose 4 mg .ROUTE .STK-MED ONE Stop: 01/29/17 12:21 Ondansetron HCl (Zofran) 4 mg IVPUSH ONETIME ONE Stop: 01/27/17 17:17 Last Admin: 01/27/17 17:45 Dose: 4 mg Ondansetron HCl (Zofran) Confirm Administered Dose 4 mg .ROUTE .STK-MED ONE Stop: 01/29/17 12:20 Propofol (Diprivan 20 Ml) Confirm Administered Dose 200 mg .ROUTE .STK-MED ONE Stop: 01/29/17 12:21 Rocuronium Gerlach (Zemuron) Confirm Administered Dose 50 mg .ROUTE .STK-MED ONE Stop: 01/29/17 12:20 Scopolamine (Transderm-Scop) 1.5 mg TOP ONETIME ONE Stop: 01/27/17 20:41 Last Admin: 01/27/17 23:26 Dose: Not Given Sodium Chloride (Saline Flush) 10 ml FLUSH ASDIRECTED PRN PRN Reason: Keep Vein Open Last Admin: 01/27/17 17:50 Dose: 10 ml Sodium Chloride (Saline Flush) 10 ml FLUSH ONETIME ONE Stop: 01/27/17 20:14 Last Admin: 01/27/17 20:43 Dose: 10 ml Sodium Chloride (Normal Saline) Confirm Administered Dose 50 ml .ROUTE .STK-MED ONE Stop: 01/29/17 12:05 Temazepam (Restoril) 30 mg PO BEDTIME PRN PRN Reason: Sleep
[2017-01-29] MEDS: Bupivacaine 0.5% 30 ML SDV ONE ×2 (13:05→13:13)
[2017-01-29] MEDS ORDERED: Ondansetron 4 MG/2 ML SDV IVPUSH PRN (13:05)
[2017-01-29] MEDS: Iopamidol 612 MG/ML 50 ML SDV ONE ×2 (13:13→13:40)
[2017-01-29] MEDS: Sodium Chloride 0.9% 50 ML SDV ONE ×2 (13:14→13:40)
[2017-01-29] MEDS ORDERED: Phenylephrine 1 MG in Sodium Chloride 0.9% 10 ML IV SCH (13:15)
[2017-01-29] MEDS ORDERED: fentaNYL 100 MCG/2 ML SDV ONE (13:25)
[2017-01-29] MEDS ORDERED: HYDROmorphone 0.5 MG/0.5 ML Syringe IVPUSH PRN (14:00)
[2017-01-29] MEDS ORDERED: fentaNYL 100 MCG/2 ML SDV IVPUSH PRN (14:00)
--- NOTE | 2017-01-29 14:02 | CR ---
Operative cholangiogram: Multiple fluoroscopic spot views were obtained Several filling defects appear to be present within the CBD. Findings are suspicious for retained stones. Distal stone does not completely obstruct as contrast is seen within the duodenum. Impression: 1. Several filling defects believed to represent retained stones within the CBD. Diagnostic code #3
--- NOTE | 2017-01-29 14:15 | PCM.OPNOTE ---
- General Post-Op/Procedure Note Date of Surgery/Procedure: 01/29/17 Operative Procedure(s): lap jannette with IOC Findings: retained common duct stones Pre Op Diagnosis: pancreatitis with Cholelithiasis Post-Op Diagnosis: Same Anesthesia Technique: General ET tube, MAC Primary Surgeon: Gerardo Abrams Complications: None Condition: Good Free Text/Narrative:: Intake & Output 01/28/17 01/29/17 01/29/17 23:59 07:59 15:59 Intake Total 1430 Output Total 450 Balance 1430 -450
--- NOTE | 2017-01-29 14:34 | PCM.POSTAN ---
POST ANESTHESIA ASSESSMENT - MENTAL STATUS Mental Status: alert - VITAL SIGNS Pulse Rate: 73 SaO2: 99 Resp Rate: 11 Blood Pressure: 123/78 Temperature: 36.9 C - RESPIRATORY Respiratory Status: respiratory rate WNL, airway patent, O2 saturation stable, supplemental oxygen - CARDIOVASCULAR CV Status: pulse rate WNL, blood pressure stable - GASTROINTESTINAL GI Status: no symptoms - POST OP HYDRATION Hydration Status: adequate & stable
--- NOTE | 2017-01-29 16:13 | PCM48HPAN ---
Post Anesthesia Note - EVALUATION WITHIN 48HRS OF ANESTHETIC Vital Signs in Normal Range: Yes Patient Participated in Evaluation: Yes Respiratory Function Stable: Yes Airway Patent: Yes Cardiovascular Function Stable: Yes Hydration Status Stable: Yes Pain Control Satisfactory: Yes Nausea and Vomiting Control Satisfactory: Yes Mental Status Recovered: Yes
[2017-01-29] MEDS: Acetaminophen/oxyCODONE 325-5 MG Tab PO PRN ×2 (16:46→21:52)
[2017-01-30 04:05] VITALS: BP 110/43
[2017-01-30] MEDS: Acetaminophen/oxyCODONE 325-5 MG Tab PO PRN (05:50)
[2017-01-30] MEDS: HYDROmorphone 1 MG/ML Syringe IVPUSH PRN (06:55)
[2017-01-30] MEDS ORDERED: Scopolamine 1.5 MG Transdermal Patch TOP ONE (06:58)
--- NOTE | 2017-01-30 07:01 | OR ---
DATE OF OPERATION: 01/29/2017 SURGEON: Gerardo Abrams MD PREOPERATIVE DIAGNOSIS: Pancreatitis, cholelithiasis. POSTOPERATIVE DIAGNOSIS: Pancreatitis, cholelithiasis. OPERATION PERFORMED: Laparoscopic cholecystectomy, intraoperative cholangiogram. FINDINGS: Dilatation of the common duct with multiple stones in distal common duct. Gallbladder showed edema and thickening of the wall with gallstones contained within it. ANESTHESIA: Procedure done under general anesthetic. ESTIMATED BLOOD LOSS: 10 mL. DESCRIPTION OF PROCEDURE: The patient was taken to the operating room, placed in a supine position, connected to monitoring equipment, given a general anesthetic and intubated. Antibiotics were given in the abdomen. SCDs were placed. The abdomen was clipped and prepped with DuraPrep and draped off in a sterile fashion. Incision was made just below the umbilicus and using a 5 mm OptiPort, the abdominal cavity was entered. Pneumoperitoneum was established and this was followed by a 5 mm, 0 degree camera. Abdominal cavity scanned showing gallbladder in the right upper quadrant with edema and adhesions around it. A 10 mm trocar placed in the epigastric position, one in the right upper quadrant and the other in the right lateral quadrant. The adhesions were taken off the gallbladder fundus. The patient placed in reverse Trendelenburg with leftward tilt. Fundus of the gallbladder retracted in a cephalad manner and further dissection of the adhesions were taken down until the cystic duct, common duct junction was identified. This was then dissected out along with the cystic artery and the cystic duct Juan Carlos pouch junction was secured with a clip and 2 clips placed on the cystic artery and an incision was made in the cystic duct. Cholangiocatheter was then placed and secured with a clip and intraoperative cholangiogram was obtained showing the above findings. The cholangiocatheter was removed and 2 clips placed on the cystic duct. Cystic duct was cut. No PDS, endo-loop also was placed on the cystic duct was secured. Cystic artery was then cut and the gallbladder was then dissected out, placed in an Endobag and removed. The area was irrigated. Excellent hemostasis was noted and minimal blood loss. This completed the intraabdominal portion. Pneumoperitoneum was removed and the skin of each port closed with subdermal 4-0 Dexon suture and Steri-Strips. Sterile dressing placed. The patient tolerated the procedure and sent to recovery room in a stable condition. MMODAL /[id number]
--- NOTE | 2017-01-30 07:27 | PCM.PN ---
- General Info Date of Service: 01/30/17 Admission Dx/Problem (Free Text): Pancreatitis Reid is seen this morning. Reports pain to RUQ and rt abdomen is improved this morning. He was able to get some sleep last night; rec'd 2 doses of IV dilaudid overnight. He is passing gas. He is sitting up talking, smiling and laughing with me this morning; yesterday was in position due to pain. MRCP was done yesterday and is unremarkable. Dr. Abrams consulted yesterday and plans for surgery once labs and pain improved. VSS; afebrile. He remains NPO this morning. Subjective Update: Follow Up Functional Status: Reports: pain controlled, ambulating, urinating. Denies: new symptoms - Review of Systems General: Denies: Fever, Weakness, Fatigue, Malaise, Chills HEENT: Reports: no symptoms Pulmonary: Denies: shortness of breath, wheezing Gastrointestinal: Denies: Abdominal pain, Nausea, Vomiting Genitourinary: Reports: no symptoms Musculoskeletal: Reports: no symptoms Skin: Reports: no symptoms Neurological: Denies: Confusion, Difficulty Walking, Weakness, Gait Disturbance Psychiatric: Denies: confusion, depression, anxiety, agitation, hallucinations Systems Review Comment:: No overnight or acute issues. He is ready to go to [place] for further eval by GI, Dr. Palomares?. Dr. Abrams coordinated this appointment. he has no new complaints. - Patient Data Vitals - most recent: Last Vital Signs Temp 36.1 C 01/30/17 04:01 Pulse 51 L 01/30/17 04:01 Resp 14 01/30/17 04:01 BP 110/43 L 01/30/17 04:01 Pulse Ox 96 01/30/17 04:01 Weight - most recent: 95.028 kg I&O - last 24 hours: Intake & Output 01/29/17 01/30/17 01/30/17 22:59 06:59 14:59 Intake Total 2891 4766 Balance 2815 4497 Lab Results last 24 hrs: Laboratory Results - last 24 hr 01/30/17 01/30/17 Range/Units 06:28 06:28 WBC 9.73 H (4.23-9.07) K/mm3 RBC 4.20 L (4.63-6.08) M/mm3 Hgb 13.2 L (13.7-17.5) gm/L Hct 38.2 L (40.1-51.0) % MCV 91.0 (79.0-92.2) fl MCH 31.4 (25.7-32.2) pg MCHC 34.6 (32.2-35.5) g/dl RDW Std Deviation 42.0 (35.1-43.9) fL Plt Count 183 (163-337) K/mm3 MPV 9.1 L (9.4-12.3) fl Neut % (Auto) 72.7 H (34.0-67.9) % Lymph % (Auto) 16.9 L (21.8-53.1) % [place] % (Auto) 9.9 (5.3-12.2) % Eos % (Auto) 0.3 L (0.8-7.0) Baso % (Auto) 0.0 L (0.1-1.2) % Neut # (Auto) 7.08 H (1.78-5.38) K/mm3 Lymph # (Auto) 1.64 (1.32-3.57) K/mm3 [place] # (Auto) 0.96 H (0.30-0.82) K/mm3 Eos # (Auto) 0.03 L (0.04-0.54) K/mm3 Baso # (Auto) 0.00 L (0.01-0.08) K/mm3 Magnesium 1.8 (1.8-2.4) mg/dl C-Reactive Protein 4.1 H* (<1.0) mg/dL Med Orders - Current: Current Medications Acetaminophen (Tylenol) 650 mg RECTAL Q6H PRN PRN Reason: Fever Albuterol/Ipratropium (Duoneb 3.0-0.5 Mg/3 Ml) 3 ml NEB Q4H PRN PRN Reason: Shortness Of Breath/wheezing Bisacodyl (Dulcolax) 5 mg PO DAILY PRN PRN Reason: Constipation Enoxaparin Sodium (Lovenox) 40 mg SUBCUT DAILY [facility] Last Admin: 01/29/17 09:22 Dose: Not Given Hydralazine HCl (Apresoline) 20 mg IVPUSH Q4H PRN PRN Reason: Hypertension Hydromorphone HCl (Dilaudid) 1 - 2 mg IVPUSH Q1H PRN PRN Reason: Pain Last Admin: 01/30/17 06:55 Dose: 1 mg Promethazine HCl 12.5 mg/ (Sodium Chloride) 50.5 mls @ 100 mls/hr IV Q6H PRN PRN Reason: Nausea/Vomiting Dextrose/Sodium Chloride (Dextrose 5%-1/2 Ns) 1,000 mls @ 200 mls/hr IV ASDIRECTED [facility] Last Admin: 01/29/17 23:25 Dose: 200 mls/hr Magnesium Sulfate (Pharmacy To Dose - Magnesium Replacement) 1 dose .XX ASDIRECTED [facility] Metoprolol Tartrate (Lopressor) 5 mg IVPUSH Q4H PRN PRN Reason: Tachycardia Miscellaneous Information (Remove Patch) 1 ea TRDERM ONETIME ONE Stop: 02/02/17 07:01 Nicotine (Habitrol) 21 mg TRDERM DAILY [facility] Last Admin: 01/29/17 09:21 Dose: 21 mg Ondansetron HCl (Zofran) 4 mg IV Q6H PRN PRN Reason: Nausea/Vomiting Last Admin: 01/28/17 04:45 Dose: 4 mg Oxycodone HCl (Oxycontin) 20 mg PO Q12HR [facility] Last Admin: 01/29/17 20:18 Dose: 20 mg Oxycodone/Acetaminophen (Percocet 325-5 Mg) 1 tab PO Q4H PRN PRN Reason: Pain Last Admin: 01/30/17 05:50 Dose: 1 tab Polyethylene Glycol (Miralax) 17 gm PO DAILY PRN PRN Reason: Constipation Potassium Chloride (Pharmacy To Dose - Potassium Replacement) 1 dose .XX ASDIRECTED [facility] Saccharomyces Boulardii (Florastor) 500 mg PO BID [facility] Last Admin: 01/29/17 20:18 Dose: 500 mg Senna/Docusate Sodium (Senna Plus) 1 tab PO BID PRN PRN Reason: Constipation Last Admin: 01/29/17 16:46 Dose: 1 tab Temazepam (Restoril) 30 mg PO BEDTIME PRN PRN Reason: Sleep Last Admin: 01/29/17 21:52 Dose: 30 mg Discontinued Medications Bupivacaine HCl (Marcaine 0.5%) Confirm Administered Dose 30 ml .ROUTE .STK-MED ONE Stop: 01/29/17 12:05 Last Admin: 01/29/17 13:05 Dose: 9 ml Cefazolin Sodium (Ancef) Confirm Administered Dose 2 gm .ROUTE .STK-MED ONE Stop: 01/29/17 12:20 Al Hydroxide/Mg Hydroxide 30 (ml/ Lidocaine HCl 15 ml) 0 ml PO ONETIME ONE Stop: 01/27/17 17:17 Last Admin: 01/27/17 17:47 Dose: 45 ml Dexamethasone (Dexamethasone) Confirm Administered Dose 20 mg .ROUTE .STK-MED ONE Stop: 01/29/17 12:20 Fentanyl (Sublimaze) Confirm Administered Dose 250 mcg .ROUTE .STK-MED ONE Stop: 01/29/17 12:22 Fentanyl (Sublimaze) 50 mcg IVPUSH Q5M PRN PRN Reason: Pain Stop: 01/29/17 14:16 Last Admin: 01/29/17 15:04 Dose: 50 mcg Fentanyl (Sublimaze) Confirm Administered Dose 100 mcg .ROUTE .STK-MED ONE Stop: 01/29/17 13:26 Hydromorphone HCl (Dilaudid) 1 mg IVPUSH ONETIME ONE Stop: 01/27/17 17:17 Last Admin: 01/27/17 17:42 Dose: 1 mg Hydromorphone HCl (Dilaudid) 1 mg IVPUSH ONETIME ONE Stop: 01/27/17 18:44 Last Admin: 01/27/17 18:48 Dose: 1 mg Hydromorphone HCl (Dilaudid) 1 mg IVPUSH ONETIME ONE Stop: 01/27/17 19:46 Last Admin: 01/27/17 20:23 Dose: 1 mg Hydromorphone HCl (Dilaudid) 1 mg IVPUSH Q4H PRN PRN Reason: Pain (severe 7-10) Last Admin: 01/28/17 09:38 Dose: 1 mg Hydromorphone HCl (Dilaudid) Confirm Administered Dose 1 mg .ROUTE .STK-MED ONE Stop: 01/29/17 12:20 Hydromorphone HCl (Dilaudid) 0.5 mg IVPUSH Q15M PRN PRN Reason: severe pain Stop: 01/29/17 14:16 Hydromorphone HCl (Dilaudid) Confirm Administered Dose 1 mg .ROUTE .STK-MED ONE Stop: 01/29/17 13:24 Hyoscyamine (Hyomax-Sl) 0.125 mg SL ONETIME ONE Stop: 01/27/17 18:45 Last Admin: 01/27/17 18:49 Dose: 0.125 mg Sodium Chloride (Normal Saline) 1,000 mls @ 250 mls/hr IV ASDIRECTED [facility] Stop: 01/27/17 21:29 Last Admin: 01/27/17 23:20 Dose: Not Given Sodium Chloride (Normal Saline) 1,000 mls @ 999 mls/hr IV ONETIME ONE Stop: 01/27/17 20:55 Last Admin: 01/27/17 21:11 Dose: 999 mls/hr Piperacillin Sod/Tazobactam (Sod 3.375 gm/ Sodium Chloride) 100 mls @ 200 mls/ hr IV ONETIME ONE Stop: 01/27/17 20:29 Last Admin: 01/27/17 21:42 Dose: Not Given Sodium Chloride (Normal Saline) 1,000 mls @ 999 mls/hr IV ONETIME ONE Stop: 01/27/17 21:04 Last Admin: 01/27/17 23:27 Dose: 999 mls/hr Dextrose/Sodium Chloride (Dextrose 5%-1/2 Ns) 1,000 mls @ 125 mls/hr IV ASDIRECTED [facility] Last Admin: 01/28/17 11:00 Dose: 125 mls/hr Piperacillin Sod/Tazobactam (Sod 4.5 gm/ Sodium Chloride) 100 mls @ 25 mls/hr IV Q8H [facility] Last Admin: 01/28/17 11:12 Dose: 25 mls/hr Piperacillin Sod/Tazobactam (Sod 4.5 gm/ Sodium Chloride) 100 mls @ 200 mls/hr IV ONETIME ONE Stop: 01/27/17 20:47 Last Admin: 01/27/17 20:18 Dose: 200 mls/hr Lidocaine HCl (Xylocaine-Mpf 1%) Confirm Administered Dose 6 mls @ as directed .ROUTE .STK-MED ONE Stop: 01/29/17 12:20 Lactated Ringer's (Ringers, Lactated) Confirm Administered Dose 2,000 mls @ as directed .ROUTE .STK-MED ONE Stop: 01/29/17 12:20 Phenylephrine HCl 1 mg/ Sodium (Chloride) 10.1 mls @ 1 mls/sec IV TITRATE [facility] Stop: 01/29/17 18:00 Iopamidol (Isovue-300 (61%)) 125 ml IVPUSH ONETIME ONE Stop: 01/27/17 20:14 Last Admin: 01/27/17 20:43 Dose: 125 ml Iopamidol (Isovue-300 (61%)) Confirm Administered Dose 50 ml .ROUTE .STK-MED ONE Stop: 01/29/17 12:05 Last Admin: 01/29/17 13:40 Dose: 15 ml Ketorolac Tromethamine (Toradol) Confirm Administered Dose 30 mg .ROUTE .STK- MED ONE Stop: 01/29/17 12:20 Lorazepam (Ativan) 1 mg IV Q6H PRN PRN Reason: Anxiety Magnesium Oxide (Magnesium Oxide) 400 mg PO ONETIME ONE Stop: 01/28/17 08:01 Last Admin: 01/28/17 08:29 Dose: 400 mg Magnesium Oxide (Magnesium Oxide) 400 mg PO ONETIME ONE Stop: 01/29/17 08:31 Last Admin: 01/29/17 09:22 Dose: 400 mg Midazolam HCl (Versed 1 Mg/Ml) Confirm Administered Dose 4 mg .ROUTE .STK-MED ONE Stop: 01/29/17 12:21 Ondansetron HCl (Zofran) 4 mg IVPUSH ONETIME ONE Stop: 01/27/17 17:17 Last Admin: 01/27/17 17:45 Dose: 4 mg Ondansetron HCl (Zofran) Confirm Administered Dose 4 mg .ROUTE .STK-MED ONE Stop: 01/29/17 12:20 Ondansetron HCl (Zofran) 4 mg IVPUSH ONETIME PRN PRN Reason: Nausea/Vomiting Stop: 01/29/17 18:00 Last Admin: 01/29/17 14:47 Dose: 4 mg Propofol (Diprivan 20 Ml) Confirm Administered Dose 200 mg .ROUTE .STK-MED ONE Stop: 01/29/17 12:21 Rocuronium [place] (Zemuron) Confirm Administered Dose 50 mg .ROUTE .STK-MED ONE Stop: 01/29/17 12:20 Scopolamine (Transderm-Scop) 1.5 mg TOP ONETIME ONE Stop: 01/27/17 20:41 Last Admin: 01/27/17 23:26 Dose: Not Given Scopolamine (Transderm-Scop) 1.5 mg TOP ONETIME ONE Stop: 01/30/17 06:59 Last Admin: 01/30/17 07:02 Dose: 1.5 mg Sodium Chloride (Saline Flush) 10 ml FLUSH ASDIRECTED PRN PRN Reason: Keep Vein Open Last Admin: 01/27/17 17:50 Dose: 10 ml Sodium Chloride (Saline Flush) 10 ml FLUSH ONETIME ONE Stop: 01/27/17 20:14 Last Admin: 01/27/17 20:43 Dose: 10 ml Sodium Chloride (Normal Saline) Confirm Administered Dose 50 ml .ROUTE .STK-MED ONE Stop: 01/29/17 12:05 Last Admin: 01/29/17 13:40 Dose: 15 ml Temazepam (Restoril) 30 mg PO BEDTIME PRN PRN Reason: Sleep - Exam General: alert, oriented, cooperative, no acute distress HEENT: Pupils equal, Pupils reactive, EOMI, Mucous membr. moist/pink Neck: supple, trachea midline, no JVD, no thyromegaly Lungs: Clear to auscultation, Normal respiratory effort Cardiovascular: Regular Rate, Regular Rhythm Abdomen: bowel sounds present, no tenderness, no distension, other (incisions intact and dry) (Male) Exam: Deferred Back Exam: Normal Inspection, Decreased Range of Motion Extremities: no edema, normal pulses, no tenderness/swelling, no clubbing, no cyanosis, no calf tenderness Peripheral Pulses: 3+: Posterior Tibial (L), Posterior Tibial (R), Dorsalis Pedis (L), Dorsalis Pedis (R) Skin: warm, dry, intact Neurological: no new focal deficit Psy/Mental Status: alert, normal affect, normal mood - Problem List & Annotations (1) Pancreatitis, gallstone SNOMED Code(s): 41646126 Code(s): K85.10 - BILIARY ACUTE PANCREATITIS WITHOUT NECROSIS OR INFECTION Status: Acute Priority: High Current Visit: Yes (2) Cholelithiasis SNOMED Code(s): 076256574 Code(s): K80.20 - CALCULUS OF GALLBLADDER W/O CHOLECYSTITIS W/O OBSTRUCTION Status: Acute Current Visit: Yes Qualifiers: Cholelithiasis location: gallbladder Cholecystitis presence: without cholecystitis - Problem List Review Problem List Initiated/Reviewed/Updated: Yes - My Orders Last 24 Hours: My Active Orders 01/30/17 06:58 Ready for Discharge [RC] PER UNIT ROUTINE 01/30/17 Breakfast NPO After Midnight [Nothing per Oral After Midnight Diet] [DIET] 02/02/17 07:00 Remove Patch 1 ea MARY ONETIME ONE - Plan Plan:: Assessment/Plan: Acute Pancreatitis - 2/2 [place] [address]--> 11, 874--> 1061 - Carries hx/o Chronic Mild ETOH Use - CT scan in 05/03/2016: showed multiple calcified gallstone - Abdominal CT scan: without evidence of infectious/necrosis etiology - U/S GB: GB Stones but no GS in CBD noted - [place]'s Criteria: Incomplete with missing LDH and Trig level initially; triglycerides 209 - Supportive Care, IV Fluids, Pain Medications; will DC IV abx as WBC and CRP unremarkable for infectious process - Dr Abrams consulted and patient underwent lap jannette -MRCP done yesterday afternoon, without evidence of obstructing stone Elevated LFTs/Transaminitis - 2/2 GD Disease and Chronic ETOH Use - Will monitor/trend-- significantly improved Chronic Mild ETOH Use - Stable - CIWA Protocol if needed-- not needed as of yet, cont close monitoring - Ativan PRN per Protocol if needed S/p Leukocytosis---improved - 2/2 # Above - Will obtain CRP - Monitor Plan: Patient ic clinically stable He will be discharged today to see a GI specialist in [place] Patient will be given anrcotic pain pill and IV to optomize his pain Scopolamine patch for Nausea/Vomiting He was advised NPO until he further notice from the GI specialist He was further advised NOT to drive but if he has no choice to drive safely Follow up with Dr. Abrams in 2-3 weeks after d/c in [place] Will put in d/c orders per Dr. Abrams's request Dr. Abrams with do the discharge summary per (his) instruction
--- NOTE | 2017-02-12 15:59 | PCM.CONSN ---
- General Info Date of Service: 02/12/17 - Patient Data Vitals - most recent: Last Vital Signs Temp 97.0 F 01/30/17 04:01 Pulse 51 L 01/30/17 04:01 Resp 14 01/30/17 04:01 BP 110/43 L 01/30/17 04:01 Pulse Ox 96 01/30/17 04:01 Weight - most recent: 95.028 kg Med Orders - Current: Current Medications Discontinued Medications Acetaminophen (Tylenol) 650 mg RECTAL Q6H PRN PRN Reason: Fever Albuterol/Ipratropium (Duoneb 3.0-0.5 Mg/3 Ml) 3 ml NEB Q4H PRN PRN Reason: Shortness Of Breath/wheezing Bisacodyl (Dulcolax) 5 mg PO DAILY PRN PRN Reason: Constipation Bupivacaine HCl (Marcaine 0.5%) Confirm Administered Dose 30 ml .ROUTE .STK-MED ONE Stop: 01/29/17 12:05 Last Admin: 01/29/17 13:05 Dose: 9 ml Cefazolin Sodium (Ancef) Confirm Administered Dose 2 gm .ROUTE .STK-MED ONE Stop: 01/29/17 12:20 Al Hydroxide/Mg Hydroxide 30 (ml/ Lidocaine HCl 15 ml) 0 ml PO ONETIME ONE Stop: 01/27/17 17:17 Last Admin: 01/27/17 17:47 Dose: 45 ml Dexamethasone (Dexamethasone) Confirm Administered Dose 20 mg .ROUTE .STK-MED ONE Stop: 01/29/17 12:20 Enoxaparin Sodium (Lovenox) 40 mg SUBCUT DAILY [facility] Last Admin: 01/29/17 09:22 Dose: Not Given Fentanyl (Sublimaze) Confirm Administered Dose 250 mcg .ROUTE .STK-MED ONE Stop: 01/29/17 12:22 Fentanyl (Sublimaze) 50 mcg IVPUSH Q5M PRN PRN Reason: Pain Stop: 01/29/17 14:16 Last Admin: 01/29/17 15:04 Dose: 50 mcg Fentanyl (Sublimaze) Confirm Administered Dose 100 mcg .ROUTE .STK-MED ONE Stop: 01/29/17 13:26 Hydralazine HCl (Apresoline) 20 mg IVPUSH Q4H PRN PRN Reason: Hypertension Hydromorphone HCl (Dilaudid) 1 mg IVPUSH ONETIME ONE Stop: 01/27/17 17:17 Last Admin: 01/27/17 17:42 Dose: 1 mg Hydromorphone HCl (Dilaudid) 1 mg IVPUSH ONETIME ONE Stop: 01/27/17 18:44 Last Admin: 01/27/17 18:48 Dose: 1 mg Hydromorphone HCl (Dilaudid) 1 mg IVPUSH ONETIME ONE Stop: 01/27/17 19:46 Last Admin: 01/27/17 20:23 Dose: 1 mg Hydromorphone HCl (Dilaudid) 1 mg IVPUSH Q4H PRN PRN Reason: Pain (severe 7-10) Last Admin: 01/28/17 09:38 Dose: 1 mg Hydromorphone HCl (Dilaudid) 1 - 2 mg IVPUSH Q1H PRN PRN Reason: Pain Last Admin: 01/30/17 06:55 Dose: 1 mg Hydromorphone HCl (Dilaudid) Confirm Administered Dose 1 mg .ROUTE .STK-MED ONE Stop: 01/29/17 12:20 Hydromorphone HCl (Dilaudid) 0.5 mg IVPUSH Q15M PRN PRN Reason: severe pain Stop: 01/29/17 14:16 Hydromorphone HCl (Dilaudid) Confirm Administered Dose 1 mg .ROUTE .STK-MED ONE Stop: 01/29/17 13:24 Hyoscyamine (Hyomax-Sl) 0.125 mg SL ONETIME ONE Stop: 01/27/17 18:45 Last Admin: 01/27/17 18:49 Dose: 0.125 mg Sodium Chloride (Normal Saline) 1,000 mls @ 250 mls/hr IV ASDIRECTED [facility] Stop: 01/27/17 21:29 Last Admin: 01/27/17 23:20 Dose: Not Given Sodium Chloride (Normal Saline) 1,000 mls @ 999 mls/hr IV ONETIME ONE Stop: 01/27/17 20:55 Last Admin: 01/27/17 21:11 Dose: 999 mls/hr Piperacillin Sod/Tazobactam (Sod 3.375 gm/ Sodium Chloride) 100 mls @ 200 mls/ hr IV ONETIME ONE Stop: 01/27/17 20:29 Last Admin: 01/27/17 21:42 Dose: Not Given Sodium Chloride (Normal Saline) 1,000 mls @ 999 mls/hr IV ONETIME ONE Stop: 01/27/17 21:04 Last Admin: 01/27/17 23:27 Dose: 999 mls/hr Promethazine HCl 12.5 mg/ (Sodium Chloride) 50.5 mls @ 100 mls/hr IV Q6H PRN PRN Reason: Nausea/Vomiting Dextrose/Sodium Chloride (Dextrose 5%-1/2 Ns) 1,000 mls @ 125 mls/hr IV ASDIRECTED [facility] Last Admin: 01/28/17 11:00 Dose: 125 mls/hr Piperacillin Sod/Tazobactam (Sod 4.5 gm/ Sodium Chloride) 100 mls @ 25 mls/hr IV Q8H [facility] Last Admin: 01/28/17 11:12 Dose: 25 mls/hr Piperacillin Sod/Tazobactam (Sod 4.5 gm/ Sodium Chloride) 100 mls @ 200 mls/hr IV ONETIME ONE Stop: 01/27/17 20:47 Last Admin: 01/27/17 20:18 Dose: 200 mls/hr Dextrose/Sodium Chloride (Dextrose 5%-1/2 Ns) 1,000 mls @ 200 mls/hr IV ASDIRECTED [facility] Last Admin: 01/29/17 23:25 Dose: 200 mls/hr Lidocaine HCl (Xylocaine-Mpf 1%) Confirm Administered Dose 6 mls @ as directed .ROUTE .STK-MED ONE Stop: 01/29/17 12:20 Lactated Ringer's (Ringers, Lactated) Confirm Administered Dose 2,000 mls @ as directed .ROUTE .STK-MED ONE Stop: 01/29/17 12:20 Phenylephrine HCl 1 mg/ Sodium (Chloride) 10.1 mls @ 1 mls/sec IV TITRATE [facility] Stop: 01/29/17 18:00 Iopamidol (Isovue-300 (61%)) 125 ml IVPUSH ONETIME ONE Stop: 01/27/17 20:14 Last Admin: 01/27/17 20:43 Dose: 125 ml Iopamidol (Isovue-300 (61%)) Confirm Administered Dose 50 ml .ROUTE .STK-MED ONE Stop: 01/29/17 12:05 Last Admin: 01/29/17 13:40 Dose: 15 ml Ketorolac Tromethamine (Toradol) Confirm Administered Dose 30 mg .ROUTE .STK- MED ONE Stop: 01/29/17 12:20 Lorazepam (Ativan) 1 mg IV Q6H PRN PRN Reason: Anxiety Magnesium Oxide (Magnesium Oxide) 400 mg PO ONETIME ONE Stop: 01/28/17 08:01 Last Admin: 01/28/17 08:29 Dose: 400 mg Magnesium Oxide (Magnesium Oxide) 400 mg PO ONETIME ONE Stop: 01/29/17 08:31 Last Admin: 01/29/17 09:22 Dose: 400 mg Magnesium Sulfate (Pharmacy To Dose - Magnesium Replacement) 1 dose .XX ASDIRECTED [facility] Metoprolol Tartrate (Lopressor) 5 mg IVPUSH Q4H PRN PRN Reason: Tachycardia Midazolam HCl (Versed 1 Mg/Ml) Confirm Administered Dose 4 mg .ROUTE .STK-MED ONE Stop: 01/29/17 12:21 Miscellaneous Information (Remove Patch) 1 ea TRDERM ONETIME ONE Stop: 02/02/17 07:01 Nicotine (Habitrol) 21 mg TRDERM DAILY [facility] Last Admin: 01/29/17 09:21 Dose: 21 mg Ondansetron HCl (Zofran) 4 mg IVPUSH ONETIME ONE Stop: 01/27/17 17:17 Last Admin: 01/27/17 17:45 Dose: 4 mg Ondansetron HCl (Zofran) 4 mg IV Q6H PRN PRN Reason: Nausea/Vomiting Last Admin: 01/28/17 04:45 Dose: 4 mg Ondansetron HCl (Zofran) Confirm Administered Dose 4 mg .ROUTE .STK-MED ONE Stop: 01/29/17 12:20 Ondansetron HCl (Zofran) 4 mg IVPUSH ONETIME PRN PRN Reason: Nausea/Vomiting Stop: 01/29/17 18:00 Last Admin: 01/29/17 14:47 Dose: 4 mg Oxycodone HCl (Oxycontin) 20 mg PO Q12HR [facility] Last Admin: 01/29/17 20:18 Dose: 20 mg Oxycodone/Acetaminophen (Percocet 325-5 Mg) 1 tab PO Q4H PRN PRN Reason: Pain Last Admin: 01/30/17 05:50 Dose: 1 tab Polyethylene Glycol (Miralax) 17 gm PO DAILY PRN PRN Reason: Constipation Potassium Chloride (Pharmacy To Dose - Potassium Replacement) 1 dose .XX ASDIRECTED [facility] Propofol (Diprivan 20 Ml) Confirm Administered Dose 200 mg .ROUTE .STK-MED ONE Stop: 01/29/17 12:21 Rocuronium [place] (Zemuron) Confirm Administered Dose 50 mg .ROUTE .STK-MED ONE Stop: 01/29/17 12:20 Saccharomyces Boulardii (Florastor) 500 mg PO BID [facility] Last Admin: 01/29/17 20:18 Dose: 500 mg Scopolamine (Transderm-Scop) 1.5 mg TOP ONETIME ONE Stop: 01/27/17 20:41 Last Admin: 01/27/17 23:26 Dose: Not Given Scopolamine (Transderm-Scop) 1.5 mg TOP ONETIME ONE Stop: 01/30/17 06:59 Last Admin: 01/30/17 07:02 Dose: 1.5 mg Senna/Docusate Sodium (Senna Plus) 1 tab PO BID PRN PRN Reason: Constipation Last Admin: 01/29/17 16:46 Dose: 1 tab Sodium Chloride (Saline Flush) 10 ml FLUSH ASDIRECTED PRN PRN Reason: Keep Vein Open Last Admin: 01/27/17 17:50 Dose: 10 ml Sodium Chloride (Saline Flush) 10 ml FLUSH ONETIME ONE Stop: 01/27/17 20:14 Last Admin: 01/27/17 20:43 Dose: 10 ml Sodium Chloride (Normal Saline) Confirm Administered Dose 50 ml .ROUTE .STK-MED ONE Stop: 01/29/17 12:05 Last Admin: 01/29/17 13:40 Dose: 15 ml Temazepam (Restoril) 30 mg PO BEDTIME PRN PRN Reason: Sleep Temazepam (Restoril) 30 mg PO BEDTIME PRN PRN Reason: Sleep Last Admin: 01/29/17 21:52 Dose: 30 mg Consult PN Assessment/Plan Procedures: Procedures ASSAY OF LIPASE (05/03/16) COMPLETE CBC W/AUTO DIFF WBC (05/03/16) COMPREHEN METABOLIC PANEL (05/03/16) CT ABD & PELVIS W/O CONTRAST (05/03/16) ELECTROCARDIOGRAM TRACING (01/19/14) EMERGENCY DEPT VISIT (07/14/16) EMERGENCY DEPT VISIT (05/03/16) EMERGENCY DEPT VISIT (09/12/15) ROUTINE VENIPUNCTURE (05/03/16) THER/PROPH/DIAG INJ IV PUSH (05/03/16) THER/PROPH/DIAG INJ SC/IM (09/12/15) URINALYSIS AUTO W/SCOPE (05/03/16) X-RAY EXAM L-S SPINE 2/3 VWS (09/12/15) Problem List Initiated/Reviewed/Updated: Yes Plan: discharge dictated OWEN
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
== END 2017-01-30 07:05 | disposition home or self-care (01) | DRG 419 ==
LOC: JD.ED 16:41 → JD.MS 21:51
PROVIDERS: ADMIT Internal Medicine; ATTEND Internal Medicine
PROC: 0FT44ZZ Resection of Gallbladder, Percutaneous Endoscopic Approach (ICD-10-PCS; principal; 2017-01-29)
DX: K85.10 Biliary acute pancreatitis without necrosis or infection (principal); Z72.89 Other problems related to lifestyle; G89.29 Other chronic pain; M54.9 Dorsalgia, unspecified; F17.210 Nicotine dependence, cigarettes, uncomplicated
CPT/HCPCS: 00790; 36415; 70250; 70250-26; 74177; 74177-26; 74181; 74181-26; 74300; 74300-26; 76705; 76705-26; 80048; 80053; 80061; 80076; 81001; 82977; 83605; 83615; 83690; 83735; 85025; 86140; 96361; 96365; 96375; 96376; 99223; 99232; 99284; 99285-25; A9270-GY; J0690; J1100; J1170; J1650; J1885; J2250; J2405; J2543; J2704; J3010; J7030; J7040; J7042; J7050; J7120; Q9967

== ENCOUNTER 2017-04-25 23:02 | Emergency (ER) | payer SELFPAY ==
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
[2017-04-25] MEDS ORDERED: Iopamidol 612 MG/ML 150 ML Bottle IVPUSH ONE (23:27)
[2017-04-25 23:57] VITALS: BP 144/87
--- NOTE | 2017-04-28 10:34 | CT ---
CT abdomen and pelvis Technique: Multiple axial sections were obtained from above the dome of the diaphragm inferiorly through the pubic symphysis. Intravenous contrast was utilized. Delayed images were obtained as original images show significant motion artifact. Findings: Small portion of the visualized lung bases are clear. Thickening of the distal esophagus is seen. Fair amount of fluid is seen within stomach. No focal abnormality is identified within the liver or within the spleen. Adrenal glands show no nodule. Kidneys show symmetric contrast enhancement. Delayed images show contrast excretion into nondilated ureters with ureters being seen to the bladder. Contrast is noted within the bladder. No contrast extravasation is seen. Duplicated collecting system is noted within the right kidney with 2 ureters occurring down to the bladder. Pancreas is within normal limits. Surgical clips are seen from prior cholecystectomy. Aorta shows no aneurysmal dilatation. No retroperitoneal adenopathy or mesenteric abnormalities are identified. No pelvic mass or adenopathy is seen. Previous lumbar spine surgery is seen. No acute bony abnormality is identified. Impression: 1. Thickening of the distal esophageal wall most likely due to chronic reflux. 2. Duplicated collecting system within the right kidney with 2 ureters which is a normal variant. 3. Other incidental findings. Nothing acute is identified on CT study of the abdomen and pelvis. Diagnostic code #2 Agree with preliminary report issued by [facility] ([facility] preliminary report dictated on 04/26/17, 1:24 AM Central Time)
== END 2017-04-26 00:55 | disposition home or self-care (01) ==
LOC: JD.ED 23:02
DX: S30.811A Abrasion of abdominal wall, initial encounter (principal); S80.211A Abrasion, right knee, initial encounter; F17.210 Nicotine dependence, cigarettes, uncomplicated; V13.4XXA Pedal cycle driver injured in collision with car, pick-up truck or van in traffic accident, initial encounter
CPT/HCPCS: 36415; 74177; 80053; 80306; 81001; 82150; 85025; 99285; G0480; Q9967; 99283

== ENCOUNTER 2017-09-04 21:46 | Emergency (ER) | payer SELFPAY ==
[2017-09-04 21:59] VITALS: BP 102/64
[2017-09-04] MEDS ORDERED: Metoclopramide 10 MG/2 ML SDV IVPUSH ONE (22:21)
[2017-09-04] MEDS ORDERED: HYDROmorphone 1 MG/ML Syringe IVPUSH ONE (22:21)
--- NOTE | 2017-09-04 22:29 | EDM.PDOC ---
ED HPI GENERAL MEDICAL PROBLEM - General Chief Complaint: Abdominal Pain Stated Complaint: VOMITING,ABDOMINAL/BACK PAIN Time Seen by Provider: 09/04/17 22:22 Source of Information: Reports: Patient History Limitations: Reports: No Limitations - History of Present Illness INITIAL COMMENTS - FREE TEXT/NARRATIVE: 37-year-old male presents to the ED with acute onset of severe right flank pain starting about 3 hours ago. Associated strong feeling of need to defecate. He has vomited from the intensity than pain 2 with bilious emesis and initially some food content. He met emesis. Pain starts in his right flank and seems to radiate around the right upper abdomen. He does have a history of renal lithiasis with kidney stones 2. No urologic surgery required. No position is couple. And also has chronic positive back pain. At his gallbladder removed 6 months ago with return to normal stools. Onset: Today Onset Date: 09/04/17 Onset Time: 19:20 Duration: Hour(s): Location: Reports: Back (Right flank back pain radiate around to the upper abdomen.) Quality: Reports: Ache, Sharp, Stabbing, Other Severity: Severe (Pain is constant with a strong colicky component) Improves with: Reports: None ( 10 out of 10) Worsens with: Reports: None Context: Denies: Activity (Nothing seems to make it better or worse.), Exercise , Lifting, Sick Contact, Trauma Associated Symptoms: Reports: Nausea/Vomiting, Other (1 bowel movement which was semi-formed.). 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 (see below) (None.) right abdomen/back Pain Score (Numeric/FACES): 10 - Related Data Allergies Allergy/AdvReac Type Severity Reaction Status Date / Time No Known Allergies Allergy Verified 09/04/17 21:59 Home Meds: Home Meds Acetaminophen/oxyCODONE [Percocet 325-5 MG] 1 tab PO DAILY PRN 04/25/17 [History ] oxyCODONE HCl/Acetaminophen [Percocet 5-325 mg Tablet] 1 - 2 each PO Q4H PRN # 20 tablet 09/04/17 [Rx] Past Medical History Gastrointestinal History: Reports: Pancreatitis Musculoskeletal History: Reports: Back Pain, Chronic Psychiatric History: Reports: Addiction Other Psychiatric History: "I love smoking marijuana" - Past Surgical History GI Surgical History: Reports: Hernia Repair/Other Neurological Surgical History: Reports: Spinal Fusion (Lower back.) Musculoskeletal Surgical History: Reports: Other (See Below) Other Musculoskeletal Surgeries/Procedures:: back surgery Social & Family History - Family History Family Medical History: Noncontributory - Tobacco Use Smoking Status *Q: Current Every Day Smoker Years of Tobacco use: 15 Packs/Tins Daily: 1 Used Tobacco, but Quit: No - Caffeine Use Caffeine Use: Reports: Coffee - Alcohol Use Days Per Week of Alcohol Use: 2 Number of Drinks Per Day: 4 Total Drinks Per Week: 8 Date of Last Drink: 09/04/17 Time of Last Drink: 20:00 - Recreational Drug Use Recreational Drug Use: Yes Drug Use in Last 12 Months: Yes Recreational Drug Type: Reports: Marijuana/Hashish Recreational Drug Use Frequency: Monthly - Living Situation & Occupation Living situation: Reports: Occupation: Employed ED ROS GENERAL - Review of Systems Review Of Systems: See Below Constitutional: Reports: Weakness. Denies: Fever, Chills, Malaise HEENT: Reports: No Symptoms Respiratory: Reports: No Symptoms Cardiovascular: Reports: No Symptoms Endocrine: Reports: No Symptoms GI/Abdominal: Reports: Abdominal Pain (Right upper quadrant abdominal pain but it starts in his right flank.), Decreased Appetite ( ARDS around to the upper abdomen.), Nausea, Vomiting : Reports: Flank Pain (Severe right side.). Denies: Frequency Musculoskeletal: Reports: Back Pain (Chronic low back pain. Previous lumbar spine surgical fusion.) Skin: Reports: No Symptoms Neurological: Reports: No Symptoms Psychiatric: Reports: No Symptoms Hematologic/Lymphatic: Reports: No Symptoms ED EXAM, GI/ABD - Physical Exam Exam: See Below Exam Limited By: No Limitations General Appearance: Alert, WD/WN, Moderate Distress (He is in obvious discomfort with malposition comfortable.) Eyes: Bilateral: Normal Appearance Respiratory/Chest: No Respiratory Distress, Lungs Clear, Normal Breath Sounds, No Accessory Muscle Use, Respiratory Distress (Mild tachypnea at 20/m due to pain response.) Cardiovascular: Normal Peripheral Pulses, Regular Rate, Rhythm, No Edema, No Gallop, No Murmur GI/Abdominal Exam: No Organomegaly, Tender, Abnormal Bowel Sounds (Hypoactive quiet bowel sounds.), Other (Evidence of recent laparoscopic wound abdomen and upright abdomen compatible with cholecystectomy.). No: Rigid (Some tenderness on palpation right upper quadrant of the abdomen with slight guarding.), Rebound Back Exam: CVA Tenderness (R), Muscle Spasm (Moderate muscle spasm right kiara- back.), Paraspinal Tenderness. No: Decreased Range of Motion (Moderate) Extremities: Normal Inspection (Right side from thoracic 12 to lumbar 4.), Normal Range of Motion, Non-Tender Neurological: Alert, Oriented, CN II-XII Intact, Normal Cognition Course - Vital Signs Last Recorded V/S: Last Vital Signs Temp 36.6 C 09/04/17 21:55 Pulse 66 09/04/17 21:55 Resp 20 09/04/17 21:55 BP 102/64 09/04/17 21:55 Pulse Ox 100 09/04/17 21:55 - Orders/Labs/Meds Orders: Active Orders 24 hr Category Date Time Status Abdomen Pelvis wo Cont [CT] Stat Exams 09/04/17 22:21 Taken Meds: Medications Discontinued Medications Generic Name Dose Route Start Last Admin Trade Name Freq PRN Reason Stop Dose Admin Hydromorphone HCl 1 mg 09/04/17 22:21 09/04/17 22:37 Dilaudid IVPUSH 09/04/17 22:22 1 mg ONETIME ONE Administration Sodium Chloride 1,000 mls @ 150 mls/hr 09/04/17 22:30 09/04/17 22:36 Normal Saline IV 150 mls/hr ASDIRECTED WYATT Administration Ketorolac Tromethamine 30 mg 09/04/17 22:30 09/04/17 22:39 Toradol IVPUSH 30 mg ONETIME WYATT Administration Metoclopramide HCl 10 mg 09/04/17 22:21 09/04/17 22:35 Reglan IVPUSH 09/04/17 22:22 10 mg ONETIME ONE Administration Oxycodone/Acetaminophen 2 tab 09/04/17 23:55 09/05/17 00:11 Percocet 325-5 Mg PO 09/04/17 23:56 2 tab ONETIME ONE Administration - Radiology Interpretation Free Text/Narrative:: 37-year-old male presents the ED with a acute onset of severe right flank pain rating around to the right upper abdomen. Associated nausea and vomiting and strong feeling of need to defecate. History of renal lithiasis. Pain is constant with a strong colicky component. It is felt primarily in the right flank and right upper abdomen. Has had previous cholecystectomy. Has had renal colic 2 without need for urologic intervention. Examination does reveal absence of bowel sounds and very tender right upper quadrant of the abdomen but pain seems to start in the right flank. Therefore CT of the abdomen will be performed per renal recall. She'll be given IV normal saline at 150 mils per hour. Dilaudid 1 mg IV with Reglan 10 mg IV and Toradol 30 mg IV for acute pain relief. Urinalysis if one becomes available. - Re-Assessments/Exams Free Text/Narrative Re-Assessment/Exam: 09/04/17 23:55: CT of the abdomen and pelvis has been completed. It reveals mild right-sided hydronephrosis and mildly dilated right ureter. No stone is identified within the ureter or kidney. Similarly the left kidney shows no evidence of stone disease. There is a small stone in the urinary bladder partially 1 mm in size which appears to have been the culprit. Patient is pain- free although he feels as if he's been placed in the right flank. I will give him 2 tablets of Percocet 5/3/25 milligrams strength for pain relief now. Prescription written for 20 more tablets primarily due to acute flare of his low back pain not due to the kidney stone as he should have no further pain or problems from it. I did identify that he is taking a lot of Tums and Rolaids for heartburn and advised him to switch to either written ranitidine or Prilosec daily and take no further tones are relates as the high calcium intake may be precipitating stone disease. Departure - Departure Time of Disposition: 23:56 Disposition: Home, Self-Care 01 Condition: Fair Clinical Impression: Renal colic on right side - Discharge Information Prescriptions: oxyCODONE HCl/Acetaminophen [Percocet 5-325 mg Tablet] 1 - 2 each PO Q4H PRN # 20 tablet PRN Reason: pain relief. Instructions: Renal Colic, [id number] Referrals: PCP,None [Primary Care Provider] - Forms: ED Department Discharge Additional Instructions: Evaluation in the emergency room today in regards to acute onset of severe right flank pain radiating around the right upper abdomen. Associated with nausea vomiting and a strong feeling of need to move your bowels. History alone is highly suggestive of a kidney stone of which you have had a couple of previous events you're treated for kidney stone with intravenous Dilaudid 1 mg Toradol 30 mg and Reglan 10 mg to arrest nausea and vomiting. T scan of the abdomen and pelvis reveals that there has been inflammation of the right kidney and ureter with a small stone 1-2 mm in size that is passed into the urinary bladder. Or pain has resolved although you still feel like you've been punched in the back for a day or so. Back pain is also flared up recently and therefore I did write a prescription for her cassette tabs 5/325 one or 2 every 4-6 hours as needed for back pain relief. You will past the stone within the next one or 2 times of passing your water without any problems. As we discussed her high use of Tums and Rolaids as of late may be contributing to stone formation as they contain high quantities of calcium. I would strongly suggest you by omeprazole or Prilosec 20 mg once daily at bedtime from [facility]. Taking one tablet a day will control your heartburn very well and place you at no risk of developing further kidney stones. May also use Zantac 150 mg once daily for heartburn relief as well. - My Orders Last 24 Hours: My Active Orders 09/04/17 22:21 Abdomen Pelvis wo Cont [CT] Stat - Assessment/Plan Last 24 Hours: My Active Orders 09/04/17 22:21 Abdomen Pelvis wo Cont [CT] Stat
[2017-09-04] MEDS ORDERED: Sodium Chloride 0.9% 1,000 ML IV SCH (22:30)
[2017-09-04] MEDS ORDERED: Ketorolac 30 MG/ML SDV IVPUSH SCH (22:30)
[2017-09-04] MEDS ORDERED: Acetaminophen/oxyCODONE 325-5 MG Tab PO ONE (23:55)
--- NOTE | 2017-09-05 11:07 | CT ---
CT abdomen and pelvis Technique: Multiple axial sections were obtained from above the kidneys inferiorly through the pubic symphysis. Intravenous and oral contrast not utilized. Study has been performed as a ureteral stone protocol. Comparison: Prior CT abdomen and pelvis exam dated 04/25/17. Findings: Right ureter is dilated down to the bladder. Very minimal calcification is seen within the UVJ measuring about 2 mm in size which is felt compatible with an obstructing small stone. No abnormal calcifications are seen within the kidneys. No other abnormal calcifications are seen along the course of the right or left ureters. Visualized lung bases are clear. Visualized liver and spleen have a normal noncontrast appearance. Small hiatal hernia is noted. Adrenal glands show no nodule. Pancreas is within normal limits. Surgical clips are seen from prior cholecystectomy. Aorta shows no aneurysmal dilatation. No retroperitoneal adenopathy or mesenteric abnormalities are seen. No pelvic mass or adenopathy is seen. No free fluid or inflammatory change is identified. Bone window settings were reviewed which shows previous surgery at L5-S1 with transpedicle screws. Severe disc space narrowing is noted at L4-5 with vacuum phenomena. Impression: 1. Mildly dilated right ureter which is felt compatible with obstruction from a small 2 mm stone within the distal right UVJ. 2. Other incidental findings. Diagnostic code #3
== END 2017-09-05 00:15 | disposition home or self-care (01) ==
LOC: JD.ED 21:46
DX: N23 Unspecified renal colic (principal); F17.210 Nicotine dependence, cigarettes, uncomplicated; Z79.899 Other long term (current) drug therapy
CPT/HCPCS: 74176; 96361; 96374; 96375; 99284; A9270; J1170; J1885; J2765; J7040

== ENCOUNTER 2017-09-28 17:13 | Emergency (ER) | payer SELFPAY ==
[2017-09-28 17:23] VITALS: BP 128/70
[2017-09-28] MEDS ORDERED: Benoxinate/Fluorescein 0.4-0.25% Ophth Soln 5 ML Bottle EYEBOTH STA (17:33)
[2017-09-28] MEDS ORDERED: Proparacaine 0.5% Ophth Soln 15 ML Bottle EYEBOTH STA (17:33)
--- NOTE | 2017-09-28 18:03 | EDM.PDOC ---
ED HPI GENERAL MEDICAL PROBLEM - General Chief Complaint: Eye Problems Stated Complaint: FOREIGN OBJECT IN L EYE Time Seen by Provider: 09/28/17 17:44 Source of Information: Reports: Patient, RN Notes Reviewed - History of Present Illness INITIAL COMMENTS - FREE TEXT/NARRATIVE: 37-year-old male with foreign body sensation left eye. He states he was doing some grinding a few days ago. He was wearing glasses at the time. Foreign body sensation has not gone away. Does not wear contacts. No visual difficulty. 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 (see below) Other Treatments DIRECTOR STAFFING: flushing eyes left eye Pain Score (Numeric/FACES): 1 - Related Data Allergies Allergy/AdvReac Type Severity Reaction Status Date / Time No Known Allergies Allergy Verified 09/28/17 17:23 Home Meds: Home Meds Acetaminophen/oxyCODONE [Percocet 325-5 MG] 1 tab PO DAILY PRN 04/25/17 [History ] Past Medical History - Past Health History Medical/Surgical History: Denies Medical/Surgical History Gastrointestinal History: Reports: Cholelithiasis, Pancreatitis Genitourinary History: Reports: Renal Calculus Musculoskeletal History: Reports: Back Pain, Chronic Psychiatric History: Reports: Addiction Other Psychiatric History: "I love smoking marijuana" - Past Surgical History GI Surgical History: Reports: Cholecystectomy, Hernia Repair/Other Neurological Surgical History: Reports: Spinal Fusion Musculoskeletal Surgical History: Reports: Other (See Below) Other Musculoskeletal Surgeries/Procedures:: back surgery Social & Family History - Family History Family Medical History: Noncontributory - Tobacco Use Smoking Status *Q: Current Every Day Smoker Years of Tobacco use: 15 Packs/Tins Daily: 0.5 Used Tobacco, but Quit: No - Caffeine Use Caffeine Use: Reports: Coffee, Energy Drinks, Soda - Alcohol Use Days Per Week of Alcohol Use: 2 Number of Drinks Per Day: 4 Total Drinks Per Week: 8 - Recreational Drug Use Recreational Drug Use: No Drug Use in Last 12 Months: Yes Recreational Drug Type: Reports: Marijuana/Hashish Recreational Drug Use Frequency: Monthly - Living Situation & Occupation Living situation: Reports: Occupation: Employed ED ROS GENERAL - Review of Systems Review Of Systems: See Below Constitutional: Reports: No Symptoms HEENT: Reports: Other. Denies: Vision Change (Foreign body sensation left eye) Respiratory: Reports: No Symptoms GI/Abdominal: Denies: Nausea, Vomiting Musculoskeletal: Reports: No Symptoms Skin: Denies: Rash Neurological: Denies: Headache ED EXAM GENERAL W FULL EYE - Physical Exam Exam: See Below General Appearance: Alert, No Apparent Distress Eye Exam: Left Eye: Foreign Body (Left upper medial cornea) Conjunctiva & Sclera: Bilateral: Normal Appearance Cornea Exam: Bilateral: Foreign Body (Left upper medial cornea) Anterior Chamber: Bilateral: Normal Appearance Head: Atraumatic Neck: Supple Respiratory/Chest: No Respiratory Distress Neurological: Alert, No Motor/Sensory Deficits Skin Exam: Warm, Dry, Normal Color, No Rash Course - Vital Signs Last Recorded V/S: Last Vital Signs Temp 98.6 F 09/28/17 17:20 Pulse 79 09/28/17 17:20 Resp 18 09/28/17 17:20 BP 128/70 09/28/17 17:20 Pulse Ox 97 09/28/17 17:20 - Orders/Labs/Meds Meds: Medications Discontinued Medications Generic Name Dose Route Start Last Admin Trade Name Freq PRN Reason Stop Dose Admin Fluorescein Sodium/Benoxinate HCl 1 ml 09/28/17 17:33 09/28/17 17:53 Fluress Ophth Soln EYEBOTH 09/28/17 17:34 1 ml NOW STA Administration Proparacaine HCl 1 ml 09/28/17 17:33 09/28/17 17:53 Proparacaine 0.5% Ophth Soln EYEBOTH 09/28/17 17:34 2 drop NOW STA Administration - Re-Assessments/Exams Free Text/Narrative Re-Assessment/Exam: 09/28/17 19:32 I was anesthetized with proparacaine. Foreign body of left upper medial cornea removed without difficulty with eye spud. Patient tolerated procedure well. Departure - Departure Time of Disposition: 17:57 Disposition: Home, Self-Care 01 Clinical Impression: Corneal foreign body Qualifiers: Encounter type: initial encounter Laterality: left Qualified Code(s): T15.02XA - Foreign body in cornea, left eye, initial encounter - Discharge Information Instructions: Eye Foreign Body, [id number] Referrals: PCP,None [Primary Care Provider] - Forms: ED Department Discharge Additional Instructions: Your eyewill continue to feel scratchy for a day or 2 but should be fairly well healed out by Thursday, alternate Tylenol and ibuprofen as needed for discomfort. follow-up with your eye doctor if not completely back to normal within 2-3 days as expected.
== END 2017-09-28 18:46 | disposition home or self-care (01) ==
LOC: JD.ED 17:13
DX: T15.02XA Foreign body in cornea, left eye, initial encounter (principal); F17.210 Nicotine dependence, cigarettes, uncomplicated; Z79.899 Other long term (current) drug therapy
CPT/HCPCS: 65220; 99282-25; 99283-25

== ENCOUNTER 2019-02-03 18:59 | Emergency (ER) | payer MEDICAID ==
[2019-02-03 19:15] VITALS: BP 152/94
[2019-02-03] MEDS ORDERED: HYDROmorphone 1 MG/ML Syringe IM ONE (19:59)
[2019-02-03] MEDS ORDERED: Orphenadrine 100 MG Tab.ER PO STA (19:59)
[2019-02-03] MEDS ORDERED: Ketorolac 60 MG/2 ML SDV IM ONE (19:59)
--- NOTE | 2019-02-03 20:01 | EDM.PDOC ---
ED HPI GENERAL MEDICAL PROBLEM - General Chief Complaint: Back Pain or Injury Stated Complaint: BACK PAIN Time Seen by Provider: 02/03/19 20:00 Source of Information: Reports: Patient, Old Records History Limitations: Reports: No Limitations - History of Present Illness INITIAL COMMENTS - FREE TEXT/NARRATIVE: 38-year-old male presents for evaluation and treatment of low back pain. Patient reports he has a fusion of L5-S1, this was done about 20 years ago. He states that he has been experiencing more back pain as of lately but since Thursday his back pain has become increasingly worse. States he did some yard work and landscaping recently and this seems to have exaggerated back pain. He is reporting pain primarily in his lower back that radiates superiorly. He denies any major trauma such as motor vehicle accidents or falls. He reports some pain radiating to his leg but it primarily radiates superiorly. Denies any numbness or tingling into his legs. No urinary stool incontinence. patient reports he gets "flares "of his back pain one To twice year that it is bad. He has been taking [id number] Motrin and is trying to be active but states the pain is too severe. 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 Lower Back Pain Score (Numeric/FACES): 9 - Related Data Allergies Allergy/AdvReac Type Severity Reaction Status Date / Time No Known Allergies Allergy Verified 02/03/19 19:07 Home Meds: Home Meds Acetaminophen/oxyCODONE [Percocet 325-5 MG] 1 each PO Q4HR PRN #15 tab 02/03/19 [Rx] Orphenadrine [Norflex] 100 mg PO BID PRN #20 tab 02/03/19 [Rx] Past Medical History - Past Health History Medical/Surgical History: Denies Medical/Surgical History HEENT History: Reports: None Cardiovascular History: Reports: None Respiratory History: Reports: None Gastrointestinal History: Reports: Cholelithiasis, Pancreatitis Genitourinary History: Reports: Renal Calculus Musculoskeletal History: Reports: Back Pain, Chronic Neurological History: Reports: None Psychiatric History: Reports: Addiction Other Psychiatric History: "I love smoking marijuana" Endocrine/Metabolic History: Reports: None Hematologic History: Reports: None Immunologic History: Reports: None Dermatologic History: Reports: None - Infectious Disease History Infectious Disease History: Reports: None - Past Surgical History HEENT Surgical History: Reports: None GI Surgical History: Reports: Cholecystectomy, Hernia Repair/Other Neurological Surgical History: Reports: Spinal Fusion Musculoskeletal Surgical History: Reports: Other (See Below) Other Musculoskeletal Surgeries/Procedures:: back surgery Social & Family History - Family History Family Medical History: Noncontributory - Tobacco Use Smoking Status *Q: Current Every Day Smoker Years of Tobacco use: 15 Packs/Tins Daily: 1 - Caffeine Use Caffeine Use: Reports: Coffee, Energy Drinks - Recreational Drug Use Recreational Drug Use: Yes Drug Use in Last 12 Months: No Recreational Drug Type: Reports: Marijuana/Hashish - Living Situation & Occupation Living situation: Reports: Occupation: Employed ED ROS GENERAL - Review of Systems Review Of Systems: See Below GI/Abdominal: Denies: Stool Incontinence : Denies: Incontinence Musculoskeletal: Reports: Back Pain (low back). Denies: Leg Pain Neurological: Denies: Numbness, Tingling ED EXAM,LOWER BACK PAIN/INJURY - Physical Exam Exam: See Below Exam Limited By: No Limitations General Appearance: Alert, WD/WN, Mild Distress Neck: Normal Inspection, Supple, Non-Tender, Full Range of Motion Respiratory/Chest: No Respiratory Distress, Lungs Clear, Normal Breath Sounds Cardiovascular: Normal Peripheral Pulses, Regular Rate, Rhythm, No Murmur Back Exam: Normal Inspection, Muscle Spasm (bilateral lower thoracic and lumbar paraspinal muscles), Paraspinal Tenderness (greastest in the lumbar spine and lower thoracic spine, bilateral), Vertebral Tenderness (lmbar spine L1- sacrum) Extremities: Normal Inspection Neurological: Alert, Normal Mood/Affect, Normal Dorsiflexion, Normal Plantar Flexion. No: Straight Leg Raise (L), Straight Leg Raise (R) Psychiatric: Normal Affect, Normal Mood Skin Exam: Warm, Dry Course - Vital Signs Last Recorded V/S: Last Vital Signs Temp 98.3 F 02/03/19 19:10 Pulse 73 02/03/19 19:10 Resp 16 02/03/19 19:10 BP 152/94 H 02/03/19 19:10 Pulse Ox 98 02/03/19 19:10 - Orders/Labs/Meds Meds: Medications Discontinued Medications Generic Name Dose Route Start Last Admin Trade Name Freq PRN Reason Stop Dose Admin Hydromorphone HCl 1 mg 02/03/19 19:59 02/03/19 20:13 Dilaudid IM 02/03/19 20:00 1 mg ONETIME ONE Administration Ketorolac Tromethamine 60 mg 02/03/19 19:59 02/03/19 20:10 Toradol IM 02/03/19 20:00 60 mg ONETIME ONE Administration Orphenadrine Citrate 100 mg 02/03/19 19:59 02/03/19 20:10 Norflex PO 02/03/19 20:00 100 mg NOW STA Administration Oxycodone/Acetaminophen 1 tab 02/03/19 21:15 02/03/19 21:24 Percocet 325-5 Mg PO 02/03/19 21:16 1 tab ONETIME ONE Administration - Re-Assessments/Exams Free Text/Narrative Re-Assessment/Exam: 02/03/19 22:01 Treated patient initially with toradol, norflex and dilaudid. Nursing staff reported patient seemed to have an adverse reaction to the dilaudid. Complained of chest tightness, anxiety and difficulty breathing after receiving the IM Dilaudid. By the time I checked on the patient, his symptoms had resolved. Patient continued to have pain therefore a PO percoet was ordered. At this point paint continues to have pain but feels improved. Will discharge home. Discharge instructions as documented. Departure - Departure Time of Disposition: 22:08 Disposition: Home, Self-Care 01 Condition: Fair Clinical Impression: Low back pain Qualifiers: Chronicity: chronic Back pain laterality: right Sciatica presence: without sciatica Qualified Code(s): M54.5 - Low back pain - Discharge Information *PRESCRIPTION DRUG MONITORING PROGRAM REVIEWED*: Yes *COPY OF PRESCRIPTION DRUG MONITORING REPORT IN PATIENT CASANDRA: No Prescriptions: Acetaminophen/oxyCODONE [Percocet 325-5 MG] 1 each PO Q4HR PRN #15 tab PRN Reason: Pain Orphenadrine [Norflex] 100 mg PO BID PRN #20 tab PRN Reason: Muscle Spasm Instructions: Acute Back Pain, Adult Referrals: Corine Olvera NP [Primary Care Provider] - Analy Kiser PA-C [Physician Compensation Associate] - Forms: ED Department Discharge Additional Instructions: You were given medication in the ER that can affect your ability to drive and operate machinery, d on ot drive or operate [employer] within 10 hours of taking prescription narcotic pain medication. OTC iburofen or aleve for pain. For pain not relieved by aleve may take percocet 1-2 tabs PO every 4-6 hours prn pain. Do not drive or operate machinery within 10 hours f taking prescription narcotic pain medication. Percocet is habit forming, take as few of these as needed to control your pain. Norflex 1 tab PO bid for muscle pain and spasm. Recommend moist heat. May also try a topical product such as icyhot or bengay. Follow-up with family med if not better by Thursday. Recommend Natty Kiser or Minnie Burciaga at the [facility]. Call [phone] to schedule with one of these providers. Please return to the ER should your symptoms change or worsen.
[2019-02-03] MEDS ORDERED: Acetaminophen/oxyCODONE 325-5 MG Tab PO ONE (21:15)
== END 2019-02-03 22:34 | disposition home or self-care (01) ==
LOC: JD.ED 18:59
DX: M54.5 Low back pain (principal); F17.210 Nicotine dependence, cigarettes, uncomplicated; Z90.49 Acquired absence of other specified parts of digestive tract; Z98.1 Arthrodesis status
CPT/HCPCS: 96372; 99283; A9270; J1170; J1885

== ENCOUNTER 2019-10-03 13:32 | Emergency (ER) | payer BC, MEDICAID ==
[2019-10-03 13:56] VITALS: BP 130/91; PULSE 112
--- NOTE | 2019-10-03 16:03 | EDM.PDOC ---
ED HPI GENERAL MEDICAL PROBLEM - General Chief Complaint: Respiratory Problem Stated Complaint: COUGH,HEADACHES,HEAD CONGESTION Time Seen by Provider: 10/03/19 15:56 - History of Present Illness INITIAL COMMENTS - FREE TEXT/NARRATIVE: 39-year-old male presents the emergency room with a cough and upper airway congestion. He is having some headaches associated with this. This started around [place] and just will not go away. He has significant headaches associated with it he has a lot of pressure behind and below his left eye. He has some intermittent left ear pain as well. Patient is not aware of any significant fevers or chills. Patient has no known ongoing medical problems no allergies he is not taking any routine medications. History of cholelithiasis and pancreatitis in the past - Related Data Allergies Allergy/AdvReac Type Severity Reaction Status Date / Time No Known Allergies Allergy Verified 10/03/19 13:56 Home Meds: Home Meds Amoxicillin/Potassium Clav [Augmentin 875-125 Tablet] 1 each PO Q12H #20 tablet 10/03/19 [Rx] Past Medical History - Past Health History Medical/Surgical History: Denies Medical/Surgical History HEENT History: Reports: None Cardiovascular History: Reports: None Respiratory History: Reports: None Gastrointestinal History: Reports: Cholelithiasis, Pancreatitis Genitourinary History: Reports: Renal Calculus Musculoskeletal History: Reports: Back Pain, Chronic Neurological History: Reports: None Psychiatric History: Reports: Addiction Other Psychiatric History: "I love smoking marijuana" Endocrine/Metabolic History: Reports: None Hematologic History: Reports: None Immunologic History: Reports: None Dermatologic History: Reports: None - Infectious Disease History Infectious Disease History: Reports: None - Past Surgical History HEENT Surgical History: Reports: None GI Surgical History: Reports: Cholecystectomy, Hernia Repair/Other Neurological Surgical History: Reports: Spinal Fusion Musculoskeletal Surgical History: Reports: Other (See Below) Other Musculoskeletal Surgeries/Procedures:: back surgery Social & Family History - Family History Family Medical History: Noncontributory - Tobacco Use Smoking Status *Q: Current Every Day Smoker Years of Tobacco use: 15 Packs/Tins Daily: 0.5 - Caffeine Use Caffeine Use: Reports: Coffee, Energy Drinks - Recreational Drug Use Recreational Drug Use: Yes Drug Use in Last 12 Months: Yes Recreational Drug Type: Reports: Marijuana/Hashish Recreational Drug Use Frequency: Rarely - Living Situation & Occupation Living situation: Reports: Occupation: Employed ED ROS GENERAL - Review of Systems Review Of Systems: See Below Constitutional: Denies: Fever, Chills HEENT: Reports: Rhinitis, Sinus Problem Respiratory: Reports: Cough, Sputum (Some green sputum) Cardiovascular: Reports: No Symptoms Endocrine: Reports: No Symptoms GI/Abdominal: Reports: No Symptoms : Reports: No Symptoms Musculoskeletal: Reports: No Symptoms Skin: Reports: No Symptoms Neurological: Reports: No Symptoms ED EXAM, GENERAL - Physical Exam Exam: See Below Exam Limited By: No Limitations General Appearance: Alert, No Apparent Distress Eye Exam: Bilateral Eye: Normal Inspection Ears: Normal External Exam, Normal Canal, Hearing Grossly Normal, Normal TMs Nose: Normal Inspection, Other (Color nasal discharge mucosa is mildly erythematous he has marked left frontal sinus tenderness with percussion and slightly less significant maxillary sinus pain with percussion) Throat/Mouth: Normal Inspection, Normal Lips, Normal Teeth, Normal Gums, Normal Oropharynx, Normal Voice, No Airway Compromise Head: Atraumatic, Normocephalic Neck: Normal Inspection, Supple, Non-Tender, Lymphadenopathy (L). No: Lymphadenopathy (R) Respiratory/Chest: No Respiratory Distress, Lungs Clear, Normal Breath Sounds Cardiovascular: Regular Rate, Rhythm, No Edema, No Murmur GI/Abdominal: Normal Bowel Sounds, Soft, Non-Tender Back Exam: Normal Inspection. No: CVA Tenderness (L), CVA Tenderness (R) Neurological: Alert, Oriented, Normal Cognition Course - Vital Signs Last Recorded V/S: Last Vital Signs Temp 37.2 C 10/03/19 13:53 Pulse 112 H 10/03/19 13:53 Resp 16 10/03/19 13:53 BP 130/91 H 10/03/19 13:53 Pulse Ox 99 10/03/19 13:53 - Re-Assessments/Exams Free Text/Narrative Re-Assessment/Exam: 10/03/19 17:40 X-rays unremarkable his sinus exam is quite concerning for left-sided sinusitis both frontal and maxillary patient be started on 10-day course of Augmentin we have discussed sinus irrigation. Departure - Departure Time of Disposition: 17:40 Disposition: Home, Self-Care 01 Clinical Impression: Left maxillary sinusitis, Frontal sinusitis - Discharge Information Prescriptions: Amoxicillin/Potassium Clav [Augmentin 875-125 Tablet] 1 each PO Q12H #20 tablet Referrals: PCP,None [Primary Care Provider] - Forms: ED Department Discharge Additional Instructions: Return to the emergency room with any questions problems or worsening symptoms. Follow-up in the hospital clinic for recheck at the end of this week [phone] take the Augmentin or amoxicillin clavulanic acid twice daily until all gone. It may take 2 to 3 days before you notice improvement from the antibiotics. As we discussed case picker a sinus irrigation kit and do this 4 times a day. Sepsis Event Note - Evaluation Sepsis Screening Result: No Definite Risk - Focused Exam Vital Signs: Vital Signs Temp Pulse Resp BP Pulse Ox 10/03/19 13:53 37.2 C 112 H 16 130/91 H 99 Date Exam was Performed: 10/03/19 Time Exam was Performed: 17:45
--- NOTE | 2019-10-03 16:56 | CR ---
Chest: Two views of the chest were obtained. Comparison: No prior chest x-ray is available. Heart size and mediastinum are normal. Lungs are clear. Bony structures are grossly intact. Impression: 1. Nothing acute is seen on two-view chest x-ray. Diagnostic code #1 Study was dictated in [place] Standard Time
== END 2019-10-03 18:06 | disposition home or self-care (01) ==
LOC: JD.ED 13:32
DX: J32.0 Chronic maxillary sinusitis (principal); J32.1 Chronic frontal sinusitis; F17.210 Nicotine dependence, cigarettes, uncomplicated
CPT/HCPCS: 71046; 71046-26; 99283; 99284-25